=== PATIENT | female | born 1930 | race African-American/Black ===

== ENCOUNTER 2016-10-03 12:59 | Emergency (ER) | payer MEDICARE, OTHER ==
[2016-10-03 14:34] LABS: ABSOLUTE LYMPHOCYTES (AUTO) 0.5 10^3/uL (0.5-4.7); ABSOLUTE MONOCYTES (AUTO) 0.2 10^3/uL (0.1-1.4); ABSOLUTE NEUT (AUTO) 8.3 10^3/uL (1.7-8.2); BASOPHILS % (AUTO) 0.3 % (0-2); EOSINOPHILS % (AUTO) 0.1 % (0-6); HEMATOCRIT 43.2 % (36.0-47.0); HEMOGLOBIN 14.1 g/dL (12.0-15.5); HGB HCT DIFFERENCE -0.9; LYMPHOCYTES % (AUTO) 5.4 % (13-45); MEAN CORPUSCULAR HEMOGLOBIN 31.4 pg (27.0-33.4); MEAN CORPUSCULAR HGB CONC 32.6 g/dL (32.0-36.0); MEAN CORPUSCULAR VOLUME 96 fl (80-97); RED BLOOD COUNT 4.48 10^6/uL (3.72-5.28); SEGMENTED NEUTROPHILS % (AUTO) 92.2 % (42-78)
[2016-10-03 14:57] LABS: ALANINE AMINOTRANSFERASE 33 U/L (9-52); ALBUMIN 4.2 g/dL (3.5-5.0); ALKALINE PHOSPHATASE 131 U/L (38-126); ANION GAP 10 (5-19); ASPARTATE AMINO TRANSFERASE 33 U/L (14-36); BILIRUBIN,TOTAL 0.9 mg/dL (0.2-1.3); BLOOD UREA NITROGEN 24 mg/dL (7-20); CARBON DIOXIDE 29 mmol/L (22-30); CHLORIDE 103 mmol/L (98-107); CREATININE RESULT 0.86 mg/dL (0.52-1.25); GLUCOSE 100 mg/dL (75-110); LIPASE 65.4 U/L (23-300); POTASSIUM 4.6 mmol/L (3.6-5.0); SODIUM 142.1 mmol/L (137-145); TOTAL PROTEIN 8.1 g/dL (6.3-8.2)
--- NOTE | 2016-10-03 15:07 | ER Document Report ---
ED General - General Stated Complaint: NAUSEA Mode of Arrival: Medic Information source: Patient, Relative, Emergency Med Personnel Notes: 86 yr old female presents with complaints of nausea vomtiing and diarrhea. Son notes patient looks well, and that everyone at care facility has similar complaints., pt has been able to eat today. denies any abd pain at all. TRAVEL OUTSIDE OF THE [place] IN LAST 30 DAYS: No - HPI Onset: This morning Onset/Duration: Sudden Quality of pain: No pain Severity: Mild Pain Level: Denies Associated symptoms: Diarrhea, Nausea, Vomiting Exacerbated by: Denies Relieved by: Denies Similar symptoms previously: No Recently seen / treated by doctor: No - Related Data Allergies/Adverse Reactions: codeine [Codeine] Allergy (Verified 12/13/15 09:46) Penicillins Allergy (Verified 12/13/15 09:46) Past Medical History - Social History Smoking Status: Never Smoker Cigarette use (# per day): No Chew tobacco use (# tins/day): No Smoking Education Provided: No Family History: Reviewed & Not Pertinent - Past Medical History Cardiac Medical History: Reports: Hx Hypercholesterolemia, Hx Hypertension Pulmonary Medical History: Neurological Medical History: Reports: Hx Cerebrovascular Accident - 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, Endocrine Medical History: Renal/ Medical History: Malignancy Medical History: Reports: Hx Breast Cancer GI Medical History: Musculoskeltal Medical History: Psychiatric Medical History: Reports: Hx Dementia, Hx Depression Traumatic Medical History: Infectious Medical History: Past Surgical History: Reports: Hx Appendectomy, Hx Breast Surgery - right, Hx Hysterectomy, Hx Mastectomy - R breast, Hx Orthopedic Surgery - Right hip prosthesis with revision on 12/14/2015, Hx Tonsillectomy - Immunizations Hx Diphtheria, Pertussis, Tetanus Vaccination: No Hx Pneumococcal Vaccination: 07/30/12 Review of Systems - Review of Systems Notes: REVIEW OF SYSTEMS: CONSTITUTIONAL : Denies fever, chills, or sweats. Denies recent illness. EENT: Denies eye, ear, throat, or mouth pain or symptoms. Denies nasal or sinus congestion or discharge. Denies throat, tongue, or mouth swelling or difficulty swallowing. CARDIOVASCULAR: Denies chest pain. Denies palpitations or racing or irregular heart beat. Denies ankle edema. RESPIRATORY: Denies cough, cold, or chest congestion. Denies shortness of breath, difficulty breathing, or wheezing. GASTROINTESTINAL: admits ot nausea ovmtiing diarrhea GENITOURINARY: Denies difficulty urinating, painful urination, burning, frequency, blood in urine, or discharge. FEMALE GENITOURINARY: Denies vaginal bleeding, heavy or abnormal periods, irregular periods. Denies vaginal discharge or odor. MUSCULOSKELETAL: Denies back or neck pain or stiffness. Denies joint pain or swelling. SKIN: Denies rash, lesions or sores. HEMATOLOGIC : Denies easy bruising or bleeding. LYMPHATIC: Denies swollen, enlarged glands. NEUROLOGICAL: Denies confusion or altered mental status. Denies passing out or loss of consciousness. Denies dizziness or lightheadedness. Denies headache. Denies weakness or paralysis or loss of use of either side. Denies problems with gait or speech. Denies sensory loss, numbness, or tingling. Denies seizures. PSYCHIATRIC: Denies anxiety or stress. Denies depression, suicidal ideation, or homicidal ideation. ALL OTHER SYSTEMS REVIEWED AND NEGATIVE. Dictation was performed using [employer] voice recognition software PHYSICAL EXAMINATION: GENERAL: Well-appearing, well-nourished and in no acute distress. HEAD: Atraumatic, normocephalic. EYES: Pupils equal round and reactive to light, extraocular movements intact, conjunctiva are normal. ENT: Nares patent, oropharynx clear without exudates. Moist mucous membranes. NECK: Normal range of motion, supple without lymphadenopathy LUNGS: Breath sounds clear to auscultation bilaterally and equal. No wheezes rales or rhonchi. HEART: Regular rate and rhythm without murmurs ABDOMEN: Soft, nontender, nondistended abdomen. No guarding, no rebound. No masses appreciated. Female : deferred Musculoskeletal: Normal range of motion, no pitting or edema. No cyanosis. NEUROLOGICAL: Cranial nerves grossly intact. Normal speech, normal gait. Normal sensory, motor exams PSYCH: Normal mood, normal affect. SKIN: Warm, Dry, normal turgor, no rashes or lesions noted. Course - Re-evaluation Re-evalutation: 10/03/16 15:31 Patient looks extremely well, family denies any other concerns, basic lab work noted no signs of dehydration, acute abdominal series was normal. I will discharge her home with nausea control. Patient has not vomited or had diarrhea while in the emergency department After performing a Medical Screening Examination, I estimate there is LOW risk for ACUTE APPENDICITIS, BOWEL OBSTRUCTION, ACUTE CHOLECYSTITIS, PERFORATED DIVERTICULITIS, INCARCERATED HERNIA, PANCREATITIS, PELVIC INFLAMMATORY DISEASE, PERFORATED ULCER, ECTOPIC , or TUBO-OVARIAN ABSCESS, thus I consider the discharge disposition reasonable. Also, there is no evidence or peritonitis , sepsis, or toxicity. The patient and I have discussed the diagnosis and risks , and we agree with discharging home with close follow-up with the understanding that symptoms and presentations can change. We also discussed returning to the Emergency Department immediately if new or worsening symptoms occur. We have discussed the symptoms which are most concerning (e.g., bloody stool, fever, changing or worsening pain, vomiting) that necessitate immediate return. - Laboratory Result Diagrams: 10/03/16 14:25 10/03/16 14:25 Laboratory results interpreted by me: 10/03/16 10/03/16 14:25 14:25 Plt Count 122 L Seg Neutrophils % 92.2 H Lymphocytes % 5.4 L Monocytes % 2.0 L Absolute Neutrophils 8.3 H BUN 24 H Alkaline Phosphatase 131 H - Diagnostic Test Radiology reviewed: Image reviewed, Reports reviewed - no acute abnormality Discharge - Discharge Clinical Impression: Nausea vomiting and diarrhea Condition: Stable Disposition: HOME, SELF-CARE Instructions: Vomiting ([facility]), Diarrhea, Nonspecific ([facility]) Prescriptions: Ondansetron [Zofran Odt 4 mg Tablet] 1 - 2 tab PO Q4H PRN #15 tab.rapdis PRN Reason: For Nausea/Vomiting Referrals: PEPITO LYMAN MD [Primary Care Provider] - Follow up tomorrow
[2016-10-03 16:51] VITALS: BP 123/65
== END 2016-10-03 16:51 | disposition home or self-care (01) ==
LOC: ER 12:59
DX: R11.2 Nausea with vomiting, unspecified (principal); R19.7 Diarrhea, unspecified; I10 Essential (primary) hypertension; Z88.5 Allergy status to narcotic agent; Z88.0 Allergy status to penicillin; Z86.73 Personal history of transient ischemic attack (TIA), and cerebral infarction without residual deficits; Z90.49 Acquired absence of other specified parts of digestive tract; Z90.710 Acquired absence of both cervix and uterus
CPT/HCPCS: 36415; 74022; 80053; 83690; 85025; 99284

== ENCOUNTER → 2016-10-20 | Outpatient (CLI) | payer MEDICARE, OTHER | LOC: WI 08:05 | PROVIDERS: ATTEND Internal Medicine Medical Oncology | DX: C50.919 Malignant neoplasm of unspecified site of unspecified female breast (principal) | CPT/HCPCS: 78306; A9503; Q9969 ==

== ENCOUNTER 2017-06-30 08:11 | Emergency (ER) | payer MEDICARE, OTHER ==
--- NOTE | 2017-06-30 08:33 | ER Document Report ---
ED General - General Chief Complaint: Fall Stated Complaint: WEAKNESS Time Seen by Provider: 06/30/17 08:18 Mode of Arrival: Ambulatory Information source: Patient Notes: 86-year-old female history of dementia was found at care facility on the floor as an unwitnessed fall. Patient herself has no complaints is been able to ambulate with no difficulty. Initial O2 sat was read as 88% but was inaccurate and is actually 97% on room air TRAVEL OUTSIDE OF THE [place] IN LAST 30 DAYS: No - HPI Onset: Just prior to arrival Onset/Duration: Sudden Quality of pain: No pain Severity: None Pain Level: Denies Associated symptoms: None Exacerbated by: Denies Relieved by: Denies Similar symptoms previously: No Recently seen / treated by doctor: No - Related Data Allergies/Adverse Reactions: codeine [Codeine] Allergy (Verified 06/30/17 08:57) Penicillins Allergy (Verified 06/30/17 08:57) Past Medical History - Social History Smoking Status: Never Smoker Cigarette use (# per day): No Chew tobacco use (# tins/day): No Smoking Education Provided: No Family History: Reviewed & Not Pertinent - Past Medical History Cardiac Medical History: Reports: Hx Hypercholesterolemia, Hx Hypertension Pulmonary Medical History: Neurological Medical History: Reports: Hx Cerebrovascular Accident - 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, Endocrine Medical History: Renal/ Medical History: Malignancy Medical History: Reports: Hx Breast Cancer GI Medical History: Denies: Hx Pancreatitis Musculoskeltal Medical History: Psychiatric Medical History: Reports: Hx Dementia, Hx Depression Traumatic Medical History: Infectious Medical History: Past Surgical History: Reports: Hx Appendectomy, Hx Breast Surgery - right, Hx Hysterectomy, Hx Mastectomy - R breast, Hx Orthopedic Surgery - Right hip prosthesis with revision on 12/14/2015, Hx Tonsillectomy - Immunizations Hx Diphtheria, Pertussis, Tetanus Vaccination: No Hx Pneumococcal Vaccination: 07/30/12 Review of Systems - Review of Systems Notes: REVIEW OF SYSTEMS: CONSTITUTIONAL : Denies fever, chills, or sweats. Denies recent illness. EENT: Denies eye, ear, throat, or mouth pain or symptoms. Denies nasal or sinus congestion or discharge. Denies throat, tongue, or mouth swelling or difficulty swallowing. CARDIOVASCULAR: Denies chest pain. Denies palpitations or racing or irregular heart beat. Denies ankle edema. RESPIRATORY: Denies cough, cold, or chest congestion. Denies shortness of breath, difficulty breathing, or wheezing. GASTROINTESTINAL: Denies abdominal pain or distention. Denies nausea, vomiting , or diarrhea. Denies blood in vomitus, stools, or per rectum. Denies black, tarry stools. Denies constipation. GENITOURINARY: Denies difficulty urinating, painful urination, burning, frequency, blood in urine, or discharge. FEMALE GENITOURINARY: Denies vaginal bleeding, heavy or abnormal periods, irregular periods. Denies vaginal discharge or odor. MUSCULOSKELETAL: Denies back or neck pain or stiffness. Denies joint pain or swelling. SKIN: Denies rash, lesions or sores. HEMATOLOGIC : Denies easy bruising or bleeding. LYMPHATIC: Denies swollen, enlarged glands. NEUROLOGICAL: Denies confusion or altered mental status. Denies passing out or loss of consciousness. Denies dizziness or lightheadedness. Denies headache. Denies weakness or paralysis or loss of use of either side. Denies problems with gait or speech. Denies sensory loss, numbness, or tingling. Denies seizures. PSYCHIATRIC: Denies anxiety or stress. Denies depression, suicidal ideation, or homicidal ideation. ALL OTHER SYSTEMS REVIEWED AND NEGATIVE. PHYSICAL EXAMINATION: GENERAL: Well-appearing, well-nourished and in no acute distress. HEAD: Atraumatic, normocephalic. EYES: Pupils equal round and reactive to light, extraocular movements intact, conjunctiva are normal. ENT: Nares patent, oropharynx clear without exudates. Moist mucous membranes. NECK: Normal range of motion, supple without lymphadenopathy LUNGS: Breath sounds clear to auscultation bilaterally and equal. No wheezes rales or rhonchi. HEART: Regular rate and rhythm without murmurs ABDOMEN: Soft, nontender, nondistended abdomen. No guarding, no rebound. No masses appreciated. Female : deferred Musculoskeletal: Normal range of motion, no pitting or edema. No cyanosis. NEUROLOGICAL: Cranial nerves grossly intact. Normal speech, normal gait. Normal sensory, motor exams PSYCH: Normal mood, normal affect. SKIN: Warm, Dry, normal turgor, no rashes or lesions noted. Dictation was performed using [employer] voice recognition software Physical Exam - Vital signs Vitals: Temp Pulse BP Pulse Ox 98.2 F 81 174/71 H 88 L 06/30/17 08:22 06/30/17 08:22 06/30/17 08:22 06/30/17 08:22 Course - Re-evaluation Re-evalutation: 06/30/17 08:52 Patient is actually quite alert and oriented, she knows where she is she knows the date. Her medical history has been reviewed and her physical examination was very benign I do not expect and life-threatening issues. I will have nurse ambulate the patient prior to discharge 06/30/17 09:19 Daughter presents stating that she wished the care facility had called her prior to coming to the emergency department, she states she would not have brought her in and that she does not require any workup. I agree with the daughter. I will discharge at this time After performing a Medical Screening Examination, I estimate there is LOW risk for INTRACRANIAL HEMORRHAGE, UNSTABLE SPINE FRACTURE, CENTRAL CORD SYNDROME, CAUDA EQUINA, THORACIC AORTIC DISSECTION, PNEUMOTHORAX, PERFORATED BOWEL, RUPTURED ABDOMINAL AORTIC ANEURYSM, ACUTE TENDON RUPTURE, COMPARTMENT SYNDROME, or OPEN FRACTURE, thus I consider the discharge disposition reasonable. Also, there is no evidence or peritonitis, sepsis, or toxicity. I have reevaluated this patient multiple times and no significant life threatening changes are noted. The patients daughter and I have discussed the diagnosis and risks, and we agree with discharging home to follow-up with their primary doctor with the understanding that symptoms and presentations can change. We also discussed returning to the Emergency Department immediately if new or worsening symptoms occur. We have discussed the symptoms which are most concerning (e.g., bloody stool, fever, changing or worsening pain, vomiting) that necessitate immediate return. - Vital Signs Vital signs: Temp Pulse Resp BP Pulse Ox 98.2 F 81 174/71 H 88 L 06/30/17 08:22 06/30/17 08:22 06/30/17 08:22 06/30/17 08:22 Discharge - Discharge Clinical Impression: Dementia Qualifiers: Dementia type: unspecified type Dementia behavioral disturbance: without behavioral disturbance Qualified Code(s): F03.90 - Unspecified dementia without behavioral disturbance Fall Qualifiers: Encounter type: initial encounter Qualified Code(s): W19.XXXA - Unspecified fall, initial encounter Condition: Stable Disposition: HOME, SELF-CARE Referrals: PEPITO LYMAN MD [Primary Care Provider] - Follow up tomorrow
[2017-06-30 10:42] VITALS: BP 157/91
== END 2017-06-30 10:30 | disposition home or self-care (01) ==
LOC: ER 08:11
DX: F03.90 Unspecified dementia, unspecified severity, without behavioral disturbance, psychotic disturbance, mood disturbance, and anxiety (principal); R53.1 Weakness; W19.XXXA Unspecified fall, initial encounter
CPT/HCPCS: 99285

== ENCOUNTER 2018-07-04 02:58 | Emergency (ER) | payer MEDICARE, OTHER ==
--- NOTE | 2018-07-04 03:19 | ER Document Report ---
ED GI/ - General Stated Complaint: ABDOMINAL PAIN Time Seen by Provider: 07/04/18 03:09 Mode of Arrival: Medic Information source: Emergency Med Personnel Notes: Patient is an 87-year-old female who presents from the detention with chief complaint of abdominal pain and no bowel movement in 1-2 days. jail reports that she had one episode of vomiting. Patient is incontinent at her baseline. Patient is pleasantly confused, knows her name but denies any symptoms. Per detention staff she has not had any fever. TRAVEL OUTSIDE OF THE [place] 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, Endocrine Medical History: Renal/ Medical History: Malignancy Medical History: Reports: Hx Breast Cancer GI Medical History: Denies: Hx Pancreatitis Musculoskeletal Medical History: Psychiatric Medical History: Reports: Hx Dementia, Hx Depression Traumatic Medical History: Infectious Medical History: Past Surgical History: Reports: Hx Appendectomy, Hx Breast Surgery - right, Hx Hysterectomy, Hx Mastectomy - R breast, Hx Orthopedic Surgery - Right hip prosthesis with revision on 12/14/2015, Hx Tonsillectomy - Immunizations Hx Diphtheria, Pertussis, Tetanus Vaccination: No Hx Pneumococcal Vaccination: 07/30/12 Review of Systems - Review of Systems Gastrointestinal: Abdominal pain -: Yes All other systems reviewed and negative Physical Exam - Vital signs Vitals: Resp 0 L 07/04/18 03:04 - Notes Notes: PHYSICAL EXAMINATION: GENERAL: No acute distress. Alert to person. HEAD: Atraumatic, normocephalic. EYES: Pupils equal round and reactive to light, extraocular movements intact, conjunctiva are normal. ENT: Nares patent, oropharynx clear without exudates. Moist mucous membranes. NECK: Normal range of motion, supple without lymphadenopathy LUNGS: Breath sounds clear to auscultation bilaterally and equal. No wheezes rales or rhonchi. HEART: Regular rate and rhythm without murmurs ABDOMEN: Soft, nontender, firm, mildly distended abdomen. No guarding, no rebound. No masses appreciated. Female : deferred Musculoskeletal: Normal range of motion, no pitting or edema. No cyanosis. NEUROLOGICAL: Cranial nerves grossly intact. Normal speech, normal gait. Normal sensory, motor exams PSYCH: Normal mood, normal affect. SKIN: Warm, Dry, normal turgor, no rashes or lesions noted. Course - Re-evaluation Re-evalutation: CBC with mid leukocytosis, WBC 12.1. Comprehensive metabolic panel is unremarkable. Urinalysis with large leukocyte esterase, 169 white blood cells, and few white blood cell clumps present. Patient has diagnosis is pyelonephritis. I did discuss this with Dr. Atkinson and considering that patient is afebrile, is not vomiting, has normal vital signs she is a good candidate for outpatient treatment at this time. Patient will be placed on Cipro due to her allergies as well as her urine cultures historically. Urine will be sent for culture. Patient will be discharged back to the nursing facility in stable condition. First dose of Cipro given in the emergency department. - Vital Signs Vital signs: Temp Pulse Resp BP Pulse Ox 99.0 F 79 16 128/68 H 100 07/04/18 05:49 07/04/18 08:55 07/04/18 08:55 07/04/18 08:55 07/04/18 08:55 - Laboratory Result Diagrams: 07/04/18 03:25 07/04/18 03:25 Laboratory results interpreted by me: 07/04/18 07/04/18 07/04/18 03:25 03:25 04:47 WBC 12.1 H RDW 14.4 H Plt Count 125 L Seg Neutrophils % 83.9 H Lymphocytes % 10.1 L Absolute Neutrophils 10.2 H BUN 23 H Glucose 120 H Urine Protein 30 H Urine Ketones TRACE H Urine Urobilinogen 4.0 H Ur Leukocyte Esterase LARGE H Urine Ascorbic Acid 40 H Discharge - Discharge Clinical Impression: Pyelonephritis Condition: Stable Disposition: HOME, SELF-CARE Additional Instructions: PYELONEPHRITIS: Your evaluation shows evidence of pyelonephritis. This is an infection in the kidney. Typical symptoms are fever, pain in the flank, pain on urination, and frequent urination. Many cases of pyelonephritis can be treated at home. Hospital care may be necessary for patients who are very ill, or elderly or . Pyelonephritis is treated with antibiotics. Be sure to take all the medication as prescribed. Drink plenty of liquids (about three quarts per day) . You may take acetaminophen for fever. You should feel significantly improved within two days. You should have a recheck of your urine in about one week to insure that the infection is gone. Return for a re-examination if your symptoms worsen in any way -- such as high fever, shaking chills, severe weakness or dizziness, severe pain, or inability to pass your urine. ANTIBIOTIC THERAPY: You have been given an antibiotic prescription. It's important that you take all the medication, unless instructed otherwise by your physician. Failure to complete the entire course can result in relapse of your condition. Common side effects of antibiotics include nausea, intestinal cramping, or diarrhea. Women may develop vaginal yeast infections, and babies can get yeast (thrush) in the mouth following the use of antibiotics. Contact your physician if you develop significant side effects from this medication. Allergy to this antibiotic can result in hives, wheezing, faintness, or itching. If symptoms of allergy occur, stop the medication and call the doctor. CIPROFLOXACIN: You have been given an antibacterial agent, ciprofloxacin (Cipro). This medicine is not related to the penicillins, sulfas, cephalosporins, or tetracyclines. It is often given to patients who are allergic to these drugs. It has been chosen for you either because other drugs are not appropriate, or because of the nature of your problem. Cipro should not be taken with antacids, as these can decrease its effectiveness. It can be taken without regard to meals. CIPRO SHOULD NOT BE TAKEN BY CHILDREN, NURSING WOMEN, OR WOMEN. Although Cipro is usually well-tolerated, common side effects can include nausea and diarrhea. Contact your doctor if you experience any unusual symptoms while on this medication, such as joint pain or swelling, shortness of breath, wheezing, faintness, or hives. USE OF ACETAMINOPHEN (Tylenol): Acetaminophen may be taken for pain relief or fever control. It's much safer than aspirin, offering a wider range of "safe" dosages. It is safe during . Some brand names are Tylenol, Panadol, Datril, Anacin 3, Tempra, and Liquiprin. Acetaminophen can be repeated every four hours. The following are maximum recommended dosages: >89 pounds or adults 650 mg to 900 mg Acetaminophen can be repeated every four hours. Maximum dose not to exceed 4000 mg a day. FOLLOW-UP CARE: If you have been referred to a physician for follow-up care, call the physician s office for an appointment as you were instructed or within the next two days. If you experience worsening or a significant change in your symptoms, notify the physician immediately or return to the Emergency Department at any time for re-evaluation. Please make sure she takes the antibiotics exactly as prescribed. She was given the first dose here, she can take her next dose as soon as the prescriptions filled this morning. The urine was sent for a culture, we will call if there are any abnormalities. Be sure she is drinking plenty of fluids. Return to the emergency department if she develops high fever, shaking, chills , severe weakness or dizziness or worsening symptoms. She should follow-up with her primary care doctor in the next 2-3 days for a follow-up. Prescriptions: Ciprofloxacin HCl [Cipro 500 mg Tablet] 500 mg PO BID #20 tablet Referrals: RUDI GARCÍA MD [Primary Care Provider] - Follow up as needed
[2018-07-04 03:34] LABS: ABSOLUTE BASOPHILS # (AUTO) 0.1 10^3/uL (0.0-0.2); ABSOLUTE EOSINOPHILS # (AUTO) 0.1 10^3/uL (0.0-0.6); ABSOLUTE LYMPHOCYTES (AUTO) 1.2 10^3/uL (0.5-4.7); ABSOLUTE MONOCYTES (AUTO) 0.6 10^3/uL (0.1-1.4); ABSOLUTE NEUT (AUTO) 10.2 10^3/uL (1.7-8.2); BASOPHILS % (AUTO) 0.6 % (0-2); EOSINOPHILS % (AUTO) 0.7 % (0-6); HEMATOCRIT 39.9 % (36.0-47.0); LYMPHOCYTES % (AUTO) 10.1 % (13-45); MEAN CORPUSCULAR HEMOGLOBIN 31.1 pg (27.0-33.4); MEAN CORPUSCULAR HGB CONC 32.5 g/dL (32.0-36.0); MEAN CORPUSCULAR VOLUME 96 fl (80-97); MONOCYTES % (AUTO) 4.7 % (3-13); PLATELET COUNT 125 10^3/uL (150-450); RED BLOOD COUNT 4.17 10^6/uL (3.72-5.28); RED CELL DISTRIBUTION WIDTH 14.4 % (11.5-14.0); SEGMENTED NEUTROPHILS % (AUTO) 83.9 % (42-78); TOTAL CELLS COUNTED % (AUTO) 100 %; WHITE BLOOD COUNT 12.1 10^3/uL (4.0-10.5)
[2018-07-04 03:46] LABS: ALANINE AMINOTRANSFERASE 12 U/L (9-52); ALKALINE PHOSPHATASE 105 U/L (38-126); ANION GAP 9 (5-19); ASPARTATE AMINO TRANSFERASE 19 U/L (14-36); BILIRUBIN,DIRECT 0.2 mg/dL (0.0-0.4); BILIRUBIN,TOTAL 0.5 mg/dL (0.2-1.3); BLOOD UREA NITROGEN 23 mg/dL (7-20); CALCIUM 9.5 mg/dL (8.4-10.2); CARBON DIOXIDE 28 mmol/L (22-30); CHLORIDE 105 mmol/L (98-107); GLUCOSE 120 mg/dL (75-110); POTASSIUM 4.2 mmol/L (3.6-5.0); SODIUM 142.2 mmol/L (137-145); TOTAL PROTEIN 6.9 g/dL (6.3-8.2)
--- NOTE | 2018-07-04 04:06 | RADIOLOGY REPORT (SQ) ---
Acute abdominal series on 07/04/2018 at 4:09 AM CLINICAL INDICATION: Constipation COMPARISON: None currently available FINDINGS: CHEST: Cardiomegaly is noted. There is minimal basilar atelectasis. Lungs are otherwise clear. Pulmonary vascularity is within normal limits. ABDOMEN: The patient is status post a left total hip arthroplasty. Degenerative changes and dextroscoliosis is noted in the spine. There is gaseous distention of the stomach. Bowel gas pattern is otherwise nonspecific. No increased stool to suggest constipation is noted. Calcifications in the pelvis are consistent with phleboliths. IMPRESSION: 1. No acute cardiopulmonary disease. 2. Nonspecific abdomen.
[2018-07-04 05:03] LABS: APPEARANCE,URINE CLOUDY; BILIRUBIN,URINE NEGATIVE (NEGATIVE); COLOR,URINE YELLOW; GLUCOSE, URINE NEGATIVE (NEGATIVE); KETONES,URINE TRACE mg/dL (NEGATIVE); LEUKOCYTE ESTERASE,URINE LARGE (NEGATIVE); NITRITE,URINE NEGATIVE (NEGATIVE); PROTEIN,URINE 30 mg/dL (NEGATIVE)
[2018-07-04] MEDS ORDERED: NORMAL SALINE 1000 ML 500 ML IV ONE (05:53)
[2018-07-04] MEDS ORDERED: CIPROFLOXACIN HCL 500 MG TABLET PO ONE (05:58)
[2018-07-04 08:57] VITALS: BP 128/68
== END 2018-07-04 09:14 | disposition home or self-care (01) ==
LOC: ER 02:58
DX: N12 Tubulo-interstitial nephritis, not specified as acute or chronic (principal); R10.9 Unspecified abdominal pain; R11.10 Vomiting, unspecified; F32.9 Major depressive disorder, single episode, unspecified; Z88.0 Allergy status to penicillin; Z88.5 Allergy status to narcotic agent; Z86.73 Personal history of transient ischemic attack (TIA), and cerebral infarction without residual deficits; Z85.3 Personal history of malignant neoplasm of breast; F03.90 Unspecified dementia, unspecified severity, without behavioral disturbance, psychotic disturbance, mood disturbance, and anxiety; Z90.710 Acquired absence of both cervix and uterus; Z90.11 Acquired absence of right breast and nipple
CPT/HCPCS: 99284; 36415; 87086; 85025; 87088; 80053; 81001; 87186; 74022; A9270; J7030

== ENCOUNTER 2018-07-07 17:07 | Emergency (ER) | payer MEDICARE ==
[2018-07-07 17:59] LABS: ABSOLUTE BASOPHILS # (AUTO) 0.1 10^3/uL (0.0-0.2); ABSOLUTE EOSINOPHILS # (AUTO) 0.1 10^3/uL (0.0-0.6); ABSOLUTE LYMPHOCYTES (AUTO) 1.6 10^3/uL (0.5-4.7); ABSOLUTE MONOCYTES (AUTO) 0.4 10^3/uL (0.1-1.4); ABSOLUTE NEUT (AUTO) 4.7 10^3/uL (1.7-8.2); BASOPHILS % (AUTO) 0.8 % (0-2); EOSINOPHILS % (AUTO) 1.8 % (0-6); HEMOGLOBIN 11.5 g/dL (12.0-15.5); LYMPHOCYTES % (AUTO) 23.2 % (13-45); MEAN CORPUSCULAR HEMOGLOBIN 31.7 pg (27.0-33.4); MEAN CORPUSCULAR HGB CONC 32.8 g/dL (32.0-36.0); MEAN CORPUSCULAR VOLUME 97 fl (80-97); MONOCYTES % (AUTO) 6.2 % (3-13); PLATELET COUNT 117 10^3/uL (150-450); RED BLOOD COUNT 3.62 10^6/uL (3.72-5.28); RED CELL DISTRIBUTION WIDTH 14.8 % (11.5-14.0); TOTAL CELLS COUNTED % (AUTO) 100 %
--- NOTE | 2018-07-07 18:02 | ER Document Report ---
ED General - General Mode of Arrival: Ambulatory Information source: Patient TRAVEL OUTSIDE OF THE [place] IN LAST 30 DAYS: No <KRISTAL THOMPSON - Last Filed: 07/07/18 23:50> <DOUG CHANDRA - Last Filed: 07/08/18 00:07> - General Chief Complaint: Low Blood Sugar Stated Complaint: BLOOD SUGAR PROBLEMS Time Seen by Provider: 07/07/18 17:43 Notes: Patient is an 87 year old female with dementia who was sent to the emergency department from [facility] due to decreased blood sugar and altered mental status. Patient states she feels fine at bedside. No further history was obtained due to patient's dementia. EMS administered 30mg of D50 en route. (KRISTAL THOMPSON) - Related Data Allergies/Adverse Reactions: codeine [Codeine] Allergy (Verified 06/30/17 08:57) Penicillins Allergy (Verified 06/30/17 08:57) Past Medical History - General Information source: Patient, [facility] Records - Social History Smoking Status: Never Smoker Cigarette use (# per day): No Chew tobacco use (# tins/day): No Smoking Education Provided: No Frequency of alcohol use: None Family History: Reviewed & Not Pertinent - Past Medical History Cardiac Medical History: Reports: Hx Hypercholesterolemia, Hx Hypertension Pulmonary Medical History: Neurological Medical History: Reports: Hx Cerebrovascular Accident - 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, Endocrine Medical History: Renal/ Medical History: Malignancy Medical History: Reports: Hx Breast Cancer GI Medical History: Musculoskeletal Medical History: Psychiatric Medical History: Reports: Hx Dementia, Hx Depression Traumatic Medical History: Infectious Medical History: Past Surgical History: Reports: Hx Appendectomy, Hx Breast Surgery - right, Hx Hysterectomy, Hx Mastectomy - R breast, Hx Orthopedic Surgery - Right hip prosthesis with revision on 12/14/2015, Hx Tonsillectomy - Immunizations Hx Diphtheria, Pertussis, Tetanus Vaccination: No Hx Pneumococcal Vaccination: 07/30/12 <KRISTAL THOMPSON - Last Filed: 07/07/18 23:50> Review of Systems - Review of Systems -: Yes ROS unobtainable due to patient's medical condition <KRISTAL THOMPSON - Last Filed: 07/07/18 23:50> Physical Exam <KRISTAL THOMPSON - Last Filed: 07/07/18 23:50> <DOUG CHANDRA - Last Filed: 07/08/18 00:07> - Notes Notes: GENERAL: Alert, Demented at baseline, interacts well. No acute distress. HEAD: Normocephalic, atraumatic. EYES: Pupils equal, round, and reactive to light. Extraocular movements intact. ENT: Oral mucosa moist, tongue midline. NECK: Full range of motion. Supple. Trachea midline. LUNGS: Clear to auscultation bilaterally, no wheezes, rales, or rhonchi. No respiratory distress. HEART: Regular rate and rhythm. No murmurs, gallops, or rubs. ABDOMEN: Soft, non-tender. Non-distended. Bowel sounds present in all 4 quadrants. EXTREMITIES: Moves all 4 extremities spontaneously. No edema, radial and dorsalis pedis pulses 2/4 bilaterally. No cyanosis. NEUROLOGICAL: Alert. Oriented to situation. Disoriented to place or year. When asked her name she gives incorrect last name. When asked where did the last name of Gina come from, she states "my dear sweet ". PSYCH: Normal affect, normal mood. SKIN: Warm, dry, normal turgor. No rashes or lesions noted. BACK: Rivastigmin patch on her left shoulder. (KRISTAL THOMPSON) Course - Laboratory Result Diagrams: 07/07/18 17:45 07/07/18 17:45 <KRISTAL THOMPSON - Last Filed: 07/07/18 23:50> - Laboratory Result Diagrams: 07/07/18 17:45 07/07/18 17:45 <DOUG CHANDRA - Last Filed: 07/08/18 00:07> - Re-evaluation Re-evalutation: 07/07/18 22:38 CBC shows anemia which is somewhat worsened compared to a few days ago, platelets slightly low at 117, hypoglycemia slowly resolved over the next 3 hours and remained stable after she was fed, initial troponin was 0.013, this was repeated several hours later and now it is undetectable, urinalysis does not show any signs of infection. EKG is nonischemic. Son at bedside states that as soon as her sugar normalized she returned to normal. She does not have a history of diabetes however she does wear an Exelon patch, there are some case reports that state that the Exelon patch may cause hypoglycemia. I recommended that the patient make sure she is snacking throughout the day as well as having regular meals, that she follow-up with her primary care physician who may want to order an A1c and that the jail perform before meals and at bedtime blood sugar checks. Son and patient are agreeable to this plan. They are aware that I do not have an exact reason why her blood sugar dropped today however I see no signs of infection, renal failure or heart attack that would have caused this. She did have one episode of atrial fibrillation that was week controlled while she was here. I see no record of this in her histories. Patient should follow- up with Dr. Lyman about this is an outpatient. There is no need to admit for one asymptomatic episode of atrial fibrillation that was rate controlled. This would not cause hypoglycemia. (DOUG CHANDRA) - Laboratory Laboratory results interpreted by me: 07/07/18 07/07/18 07/07/18 17:45 17:45 18:02 RBC 3.62 L Hgb 11.5 L Hct 35.0 L RDW 14.8 H Plt Count 117 L Potassium 5.1 H BUN 23 H Est GFR (Non-Af Amer) 53 L POC Glucose Urine Ascorbic Acid 40 H 07/07/18 18:20 RBC Hgb Hct RDW Plt Count Potassium BUN Est GFR (Non-Af Amer) POC Glucose 57 L Urine Ascorbic Acid - EKG Interpretation by Me Additional EKG results interpreted by me: 07/07/18 22:39 Initial EKG shows sinus bradycardia at a rate of 157, left anterior hemiblock, poor R wave progression, T wave inversions noted in lead III and aVF, poor R wave progression is new since prior EKG on 03/13/2016 as is the left anterior hemiblock per my interpretation. Repeat EKG shows atrial fibrillation at a rate of 58, left anterior hemiblock, poor R wave progression, persistent T wave inversion in lead III and aVF, no significant change from first EKG aside from atrial fibrillation today per my interpretation. (DOUG CHANDRA) Discharge <KRISTAL THOMPSON - Last Filed: 07/07/18 23:50> <DOUG CHANDRA - Last Filed: 07/08/18 00:07> - Discharge Clinical Impression: Hypoglycemia, Intermittent atrial fibrillation Condition: Stable Disposition: HOME, SELF-CARE Additional Instructions: Today her blood sugar was low but this normalized when we fed her. I did not find any signs of infection or a heart attack that would have caused this. It is important that they check her blood sugar regularly at the jail, they should consider checking it before meals and before bedtime and then feeding her if it is low. In addition to eating 3 meals a day please make sure you are eating snacks with some fat and some protein in them in between meals. You did have one episode of atrial fibrillation while you are in the emergency department, this is an irregular heartbeat. I do not see any record that you have had this before. You will need to follow-up with your primary care physician regarding this 1 episode of atrial fibrillation. Nothing needs to be done for it this evening as it was rate controlled. Referrals: PEPITO LYMAN MD [Primary Care Provider] - Follow up in 3-5 days Scribe Attestation: 07/08/18 00:07 I personally performed the services described in the documentation, reviewed and edited the documentation which was dictated to the scribe in my presence, and it accurately records my words and actions. (DOUG CHANDRA) Scribe Documentation - Scribe Written by Sedrick:: Sedrick Pulido, 07/07/2018 19:00 acting as scribe for :: Peyman <KRISTAL THOMPSON - Last Filed: 07/07/18 23:50>
[2018-07-07 18:18] LABS: APPEARANCE,URINE CLEAR; BILIRUBIN,URINE NEGATIVE (NEGATIVE); COLOR,URINE YELLOW; GLUCOSE, URINE NEGATIVE (NEGATIVE); KETONES,URINE NEGATIVE (NEGATIVE); LEUKOCYTE ESTERASE,URINE NEGATIVE (NEGATIVE); NITRITE,URINE NEGATIVE (NEGATIVE); PROTEIN,URINE NEGATIVE (NEGATIVE); URINE SPECIFIC GRAVITY 1.018; UROBILINOGEN,URINE NEGATIVE mg/dL (<2.0)
[2018-07-07 18:19] LABS: ALANINE AMINOTRANSFERASE 16 U/L (9-52); ALBUMIN 4.3 g/dL (3.5-5.0); ALKALINE PHOSPHATASE 91 U/L (38-126); ANION GAP 13 (5-19); ASPARTATE AMINO TRANSFERASE 29 U/L (14-36); BILIRUBIN,DIRECT 0.3 mg/dL (0.0-0.4); BILIRUBIN,TOTAL 0.8 mg/dL (0.2-1.3); BLOOD UREA NITROGEN 23 mg/dL (7-20); CALCIUM 9.4 mg/dL (8.4-10.2); CARBON DIOXIDE 27 mmol/L (22-30); CHLORIDE 104 mmol/L (98-107); CREATINE KINASE 76 U/L (30-135); GLUCOSE 94 mg/dL (75-110); POTASSIUM 5.1 mmol/L (3.6-5.0); SODIUM 144.1 mmol/L (137-145); TOTAL PROTEIN 7.5 g/dL (6.3-8.2)
[2018-07-07 18:31] LABS: CREATINE KINASE MB 1.32 ng/mL (<4.55); TROPONIN I 0.013 ng/mL
--- NOTE | 2018-07-07 22:06 | EKG REPORT ---
SEVERITY:- ABNORMAL ECG - ATRIAL FIBRILLATION LEFT ANTERIOR FASCICULAR BLOCK PROBABLE ANTEROSEPTAL INFARCT, AGE INDETERM NONSPECIFIC T ABNORMALITIES, INFERIOR LEADS : Confirmed by: Robyn Quinn 07-Jul-2018 22:05:42
--- NOTE | 2018-07-07 22:06 | EKG REPORT ---
SEVERITY:- ABNORMAL ECG - SINUS RHYTHM LEFT ANTERIOR FASCICULAR BLOCK ABNRM R PROG, CONSIDER ASMI OR LEAD PLACEMENT NONSPECIFIC T ABNORMALITIES, INFERIOR LEADS : Confirmed by: Robyn Quinn 07-Jul-2018 22:06:04
[2018-07-08 01:17] VITALS: BP 109/61
== END 2018-07-07 23:20 | disposition home or self-care (01) ==
LOC: ER 17:07
DX: E16.2 Hypoglycemia, unspecified (principal); I48.91 Unspecified atrial fibrillation; R00.1 Bradycardia, unspecified; F03.90 Unspecified dementia, unspecified severity, without behavioral disturbance, psychotic disturbance, mood disturbance, and anxiety; I10 Essential (primary) hypertension; D64.9 Anemia, unspecified; Z88.5 Allergy status to narcotic agent; Z88.0 Allergy status to penicillin; Z86.73 Personal history of transient ischemic attack (TIA), and cerebral infarction without residual deficits; Z85.3 Personal history of malignant neoplasm of breast; Z79.899 Other long term (current) drug therapy
CPT/HCPCS: 36415; 80053; 81001; 82550; 82553; 82962; 84484; 85025; 93005; 93010; 99285

== ENCOUNTER 2019-03-13 11:36 | Inpatient (IN) | payer MEDICARE, OTHER ==
[2019-03-13 12:17] LABS: HEMATOCRIT 38.9 % (36.0-47.0); HEMOGLOBIN 12.4 g/dL (12.0-15.5); MEAN CORPUSCULAR HEMOGLOBIN 29.2 pg (27.0-33.4); MEAN CORPUSCULAR HGB CONC 31.8 g/dL (32.0-36.0); MEAN CORPUSCULAR VOLUME 92 fl (80-97); PLATELET COUNT 104 10^3/uL (150-450); RED BLOOD COUNT 4.25 10^6/uL (3.72-5.28); RED CELL DISTRIBUTION WIDTH 15.7 % (11.5-14.0); WHITE BLOOD COUNT 17.3 10^3/uL (4.0-10.5)
[2019-03-13 12:17] LABS: VENOUS BLOOD BASE EXCESS 0.2 mmol/L; VENOUS BLOOD HCO3 24.7 mmol/L (20-32); VENOUS BLOOD PCO2 39.4 mmHg (35-63); VENOUS BLOOD PH 7.42 (7.30-7.42)
--- NOTE | 2019-03-13 12:20 | ER Document Report ---
ED General - General Stated Complaint: ALTERED MENTAL STATUS Time Seen by Provider: 03/13/19 11:58 Primary Care Provider: PEPITO LYMAN MD [Primary Care Provider] - Follow up as needed TRAVEL OUTSIDE OF THE [place] IN LAST 30 DAYS: No - HPI Notes: Patient is a 88-year-old female that presents to the emergency department for chief complaint of mental status change. [facility] lives at [facility] facility. She reportedly has Alzheimer's dementia. Patient was sitting at the breakfast table this morning around 9 AM per her son when she had an episode of unresponsiveness. The son states that she seemed to slouch over a breakfast and had slurred speech. Patient reportedly has a history of TIAs in the past. longterm states initially she was not speaking and EMS said that she has had improving mentation since they arrived on scene. Patient is DNR. She is not currently complaining of any pain and states she feels fine. Patient is a poor historian secondary to dementia. Past Medical History: Alzheimer's dementia, insomnia Past Surgical History: Reviewed in chart Social History: Lives at jail facility. Family History: Reviewed and noncontributory for presenting illness Allergies: Reviewed, see documented allergy list. REVIEW OF SYSTEMS: CONSTITUTIONAL : No fever No chills No diaphoresis No recent illness EENT: No vision changes No congestion No sore throat CARDIOVASCULAR: No chest pain No palpitations RESPIRATORY: No shortness of breath No cough No difficulty breathing GASTROINTESTINAL: No abdominal pain No nausea No vomiting No diarrhea GENITOURINARY: No dysuria No hematuria No difficulty urinating MUSCULOSKELETAL: No back pain No leg pain No arm pain SKIN: No rashes No lesions LYMPHATIC: No swollen, enlarged glands. NEUROLOGICAL: No lightheadedness No headache No weakness No paresthesias PSYCHIATRIC: No anxiety No depression PHYSICAL EXAMINATION: Vital signs reviewed, nursing noted reviewed. GENERAL: Well-appearing, well-nourished and in no acute distress. HEAD: Atraumatic, normocephalic. EYES: Eyes appear normal, extraocular movements intact, sclera anicteric, conjunctiva are normal. ENT: nares patent, oropharynx clear without exudates. Moist mucous membranes. NECK: Normal range of motion, supple without lymphadenopathy LUNGS: Breath sounds clear to auscultation bilaterally and equal. No wheezes rales or rhonchi. HEART: Regular rate and rhythm without murmurs ABDOMEN: Soft, nontender, normoactive bowel sounds. No rebound, guarding, or rigidity. No masses appreciated. EXTREMITIES: Nontender, good range of motion, no pitting or edema. NEUROLOGICAL: Oriented to person only. somnolent. Patient not following commands well but is able to move all extremities and motor is grossly intact. She has weak admissions representative strength bilaterally. She has minimal movement of her lower extremities bilaterally. Sensory grossly intact. PSYCH: Normal mood, normal affect. 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, Endocrine Medical History: Renal/ Medical History: Malignancy Medical History: Reports: Hx Breast Cancer GI Medical History: Denies: Hx Pancreatitis Musculoskeletal Medical History: Denies Hx Systemic Lupus Erythematosus Psychiatric Medical History: Reports: Hx Dementia, Hx Depression Traumatic Medical History: Infectious Medical History: Past Surgical History: Reports: Hx Appendectomy, Hx Breast Surgery - right, Hx Hysterectomy, Hx Mastectomy - R breast, Hx Orthopedic Surgery - Right hip prosth esis with revision on 12/14/2015, Hx Tonsillectomy - Immunizations Hx Diphtheria, Pertussis, Tetanus Vaccination: No Hx Pneumococcal Vaccination: 07/30/12 Course - Re-evaluation Re-evalutation: 03/13/19 13:14 Vitals reviewed. Nursing notes reviewed. Patient is alert and oriented to her self. Her son is at bedside and states she seems more tired than usual but not too far off from her baseline mentation. it is difficult to assess her neurologic function because of her dementia she is not following commands well although she is attempting. Her CT brain shows no acute intracranial process. She has no lateralizing neurologic deficit to suggest ischemic stroke. Patient's lab work shows leukocytosis with bandemia. Chest x-ray shows no underlying pneumonia. Urinalysis has not been able to be obtained as of yet however she does have a history of UTIs on chart review. Laboratory 0703/13/19 03/13/19 11:50 11:50 11:50 WBC 17.3 H RBC 4.25 Hgb 12.4 Hct 38.9 MCV 92 MCH 29.2 MCHC 31.8 L RDW 15.7 H Plt Count 104 L Total Counted 100 Seg Neutrophils % Not Reportable Seg Neuts % (Manual) 92 H Lymphocytes % Not Reportable Lymphocytes % (Manual) 4 L Monocytes % Not Reportable Monocytes % (Manual) 4 Eosinophils % Not Reportable Eosinophils % (Manual) 0 Basophils % Not Reportable Basophils % (Manual) 0 Absolute Neutrophils Not Reportable Abs Neuts (Manual) 15.9 H Absolute Lymphocytes Not Reportable Abs Lymphs (Manual) 0.7 Absolute Monocytes Not Reportable Abs Monocytes (Manual) 0.7 Absolute Eosinophils Not Reportable Absolute Eos (Manual) 0.0 Absolute Basophils Not Reportable Abs Basophils (Manual) 0.0 Large Platelets PRESENT Platelet Comment DECREASED Polychromasia SLIGHT Poikilocytosis SLIGHT Anisocytosis SLIGHT Ovalocytes SLIGHT PT 12.9 INR 0.97 VBG pH VBG pCO2 VBG HCO3 VBG Base Excess Sodium 141.6 Potassium 4.2 Chloride 105 Carbon Dioxide 26 Anion Gap 11 BUN 33 H Creatinine 1.02 Est GFR ( Amer) > 60 Est GFR (Non-Af Amer) 51 L Glucose 122 H Lactic Acid Calcium 9.4 Total Bilirubin 0.9 Direct Bilirubin 0.3 Neonat Total Bilirubin Not Reportable Neonat Direct Bilirubin Not Reportable Neonat Indirect Bili Not Reportable AST 20 ALT 9 Alkaline Phosphatase 105 Troponin I Total Protein 7.5 Albumin 4.3 03/13/19 03/13/19 03/13/19 11:50 11:50 12:08 WBC RBC Hgb Hct MCV MCH MCHC RDW Plt Count Total Counted Seg Neutrophils % Seg Neuts % (Manual) Lymphocytes % Lymphocytes % (Manual) Monocytes % Monocytes % (Manual) Eosinophils % Eosinophils % (Manual) Basophils % Basophils % (Manual) Absolute Neutrophils Abs Neuts (Manual) Absolute Lymphocytes Abs Lymphs (Manual) Absolute Monocytes Abs Monocytes (Manual) Absolute Eosinophils Absolute Eos (Manual) Absolute Basophils Abs Basophils (Manual) Large Platelets Platelet Comment Polychromasia Poikilocytosis Anisocytosis Ovalocytes PT INR VBG pH 7.42 VBG pCO2 39.4 VBG HCO3 24.7 VBG Base Excess 0.2 Sodium Potassium Chloride Carbon Dioxide Anion Gap BUN Creatinine Est GFR ( Amer) Est GFR (Non-Af Amer) Glucose Lactic Acid 1.7 Calcium Total Bilirubin Direct Bilirubin Neonat Total Bilirubin Neonat Direct Bilirubin Neonat Indirect Bili AST ALT Alkaline Phosphatase Troponin I < 0.012 Total Protein Albumin Chest X-Ray 03/13/19 11:58 IMPRESSION: Cardiomegaly without pulmonary edema. Head CT 03/13/19 11:58 IMPRESSION: MICROVASCULAR ISCHEMIA AND GENERALIZED ATROPHY. NO ACUTE IMAGING FINDINGS IN THE BRAIN EVIDENCE OF ACUTE STROKE: NO. 03/13/19 13:34 Patient was reevaluated again and is continuing to be somnolent but wakes to verbal stimuli. Her daughter is now at bedside and states that she has had increasing fatigue since yesterday. Daughter has not noticed any other symptoms but currently states that her mother is less arousable than usual. Patient will be given Rocephin for likely underlying urinary tract infection while awaiting UA sample to be obtained. Patient is continued to be altered and has a leukocytosis concerning for infection. She will be admitted for further monitoring. Her care was discussed with Dr. Ellis who will admit for further medical management. - Laboratory Result Diagrams: 03/13/19 11:50 03/13/19 11:50 Laboratory results interpreted by me: 03/13/19 03/13/19 11:50 11:50 WBC 17.3 H MCHC 31.8 L RDW 15.7 H Plt Count 104 L Seg Neuts % (Manual) 92 H Lymphocytes % (Manual) 4 L Abs Neuts (Manual) 15.9 H BUN 33 H Est GFR (Non-Af Amer) 51 L Glucose 122 H - EKG Interpretation by Me Additional EKG results interpreted by me: 03/13/19 13:13 Interpreted by myself 1306: Normal sinus rhythm, rate 81, left axis, left anterior fascicular block, no STEMI, PAC Discharge - Discharge Clinical Impression: Altered mental status Qualifiers: Altered mental status type: somnolence Qualified Code(s): R40.0 - Somnolence Leukocytosis Qualifiers: Leukocytosis type: bandemia Qualified Code(s): D72.825 - Bandemia Condition: Stable Disposition: ADMITTED INPATIENT Admitting Provider: Caleb (Hospitalist) Unit Admitted: Medical Floor Referrals: PEPITO LYMAN MD [Primary Care Provider] - Follow up as needed
[2019-03-13 12:21] LABS: INTERNATIONAL RATION (INR) 0.97; PROTHROMBIN TIME 12.9 SEC (11.4-15.4)
[2019-03-13 12:35] LABS: ALANINE AMINOTRANSFERASE 9 U/L (9-52); ALBUMIN 4.3 g/dL (3.5-5.0); ALKALINE PHOSPHATASE 105 U/L (38-126); ANION GAP 11 (5-19); ASPARTATE AMINO TRANSFERASE 20 U/L (14-36); BILIRUBIN,DIRECT 0.3 mg/dL (0.0-0.4); BILIRUBIN,TOTAL 0.9 mg/dL (0.2-1.3); BLOOD UREA NITROGEN 33 mg/dL (7-20); CALCIUM 9.4 mg/dL (8.4-10.2); CARBON DIOXIDE 26 mmol/L (22-30); CHLORIDE 105 mmol/L (98-107); GLUCOSE 122 mg/dL (75-110); POTASSIUM 4.2 mmol/L (3.6-5.0); SODIUM 141.6 mmol/L (137-145); TOTAL PROTEIN 7.5 g/dL (6.3-8.2)
--- NOTE | 2019-03-13 12:39 | RADIOLOGY REPORT (SQ) ---
EXAM DESCRIPTION: CHEST SINGLE VIEW COMPLETED DATE/TIME: 03/13/2019 12:31 pm REASON FOR STUDY: altered mental status COMPARISON: 03/16/2016 EXAM PARAMETERS: NUMBER OF VIEWS: One view. TECHNIQUE: Single frontal radiographic view of the chest acquired. RADIATION DOSE: NA LIMITATIONS: None. FINDINGS: LUNGS AND PLEURA: No opacities, masses or pneumothorax. No pleural effusion. MEDIASTINUM AND HILAR STRUCTURES: No masses. Contour normal. HEART AND VASCULAR STRUCTURES: Cardiomegaly. No pulmonary edema. BONES: No acute findings. HARDWARE: None in the chest. OTHER: No other significant finding. IMPRESSION: Cardiomegaly without pulmonary edema. TECHNICAL DOCUMENTATION: JOB ID: [id number] [employer]- All Rights Reserved Reading location - IP/workstation name: [email or web address]
[2019-03-13 12:41] LABS: ABSOLUTE LYMPHOCYTES# (MANUAL) 0.7 10^3/uL (0.5-4.7); ABSOLUTE MONOCYTES # (MANUAL) 0.7 10^3/uL (0.1-1.4); BASOPHILS % (MANUAL) 0 % (0-2); EOSINOPHILS % (MANUAL) 0 % (0-6); LYMPHOCYTES % (MANUAL) 4 % (13-45); MONOCYTES % (MANUAL) 4 % (3-13); SEGMENTED NEUTROPHILS % (MAN) 92 % (42-78); TOTAL CELLS COUNTED 100
[2019-03-13 12:43] LABS: ANISOCYTOSIS SLIGHT; OVALOCYTES SLIGHT; PLATELET COMMENT DECREASED; PLATELET LARGE PRESENT; POIKILOCYTOSIS SLIGHT; POLYCHROMASIA SLIGHT
--- NOTE | 2019-03-13 12:44 | RADIOLOGY REPORT (SQ) ---
EXAM DESCRIPTION: CT HEAD WITHOUT COMPLETED DATE/TIME: 03/13/2019 12:35 pm REASON FOR STUDY: altered mental status COMPARISON: 08/07/2015 TECHNIQUE: Axial images acquired through the brain without intravenous contrast. Images reviewed wi th bone, brain and subdural windows. Additional sagittal and coronal reconstructions were generated. Images stored on PACS. All CT scanners at this facility use dose modulation, iterative reconstruction, and/or weight based d osing when appropriate to reduce radiation dose to as low as reasonably achievable (ALARA). [facility]: Dose Right [facility]: CareDose [facility]: Dose Right [facility]: Teradose 4D [facility]: Smart [employer] Water RADIATION DOSE: CT Rad equipment meets quality standard of care and radiation dose reduction techniq ues were employed. CTDIvol: 53.2 mGy. DLP: 964 mGy-cm. mGy. LIMITATIONS: None. FINDINGS: VENTRICLES: Prominent ventricles secondary to involutional atrophy. CEREBRUM: Mild cortical atrophy. No masses. No hemorrhage. No midline shift. No evidence for acut e infarction. Areas of low density in the white matter most likely chronic small vessel ischemic richardson ges. CEREBELLUM: No masses. No hemorrhage. No alteration of density. No evidence for acute infarction. EXTRAAXIAL SPACES: No fluid collections. No masses. ORBITS AND GLOBE: No intra- or extraconal masses. Normal contour of globe without masses. CALVARIUM: No fracture. PARANASAL SINUSES: No fluid or mucosal thickening. SOFT TISSUES: No mass or hematoma. OTHER: No other significant finding. IMPRESSION: MICROVASCULAR ISCHEMIA AND GENERALIZED ATROPHY. NO ACUTE IMAGING FINDINGS IN THE BRAIN EVIDENCE OF ACUTE STROKE: NO. COMMENT: Quality ID # [id number]: Final reports with documentation of one or more dose reduction techniques (e.g., Automated exposure control, adjustment of the mA and/or kV according to patient size, use of iterative reconstruction technique) TECHNICAL DOCUMENTATION: JOB ID: [id number] [employer]- All Rights Reserved Reading location - IP/workstation name: [email or web address]
[2019-03-13] MEDS ORDERED: CEFTRIAXONE INJ 1000 MG VIAL IV ONE (13:02)
[2019-03-13] MEDS ORDERED: NORMAL SALINE 1000 ML 1,000 ML IV ONE ×2 (13:03→14:00)
[2019-03-13 13:48] LABS: APPEARANCE,URINE SLIGHTLY-CLOUDY; BILIRUBIN,URINE NEGATIVE (NEGATIVE); COLOR,URINE YELLOW; GLUCOSE, URINE NEGATIVE (NEGATIVE); KETONES,URINE TRACE mg/dL (NEGATIVE); LEUKOCYTE ESTERASE,URINE MODERATE (NEGATIVE); NITRITE,URINE POSITIVE (NEGATIVE); PROTEIN,URINE NEGATIVE (NEGATIVE); UROBILINOGEN,URINE NEGATIVE mg/dL (<2.0)
[2019-03-13] MEDS ORDERED: ONDANSETRON HCL INJ/PF 4 MG/2 ML SDV IV PRN (14:02)
[2019-03-13] MEDS ORDERED: ACETAMINOPHEN 325 MG TABLET PO PRN (14:02)
[2019-03-13] MEDS ORDERED: LEVOFLOXACIN 500 MG/D5W RTU 500 MG/100 ML RTUPB IV ONE (18:00)
[2019-03-13] MEDS: NORMAL SALINE 1000 ML 1,000 ML IV PRN (18:19)
[2019-03-13] MEDS: DOCUSATE SODIUM 100 MG CAPSULE PO SCH (18:22)
--- NOTE | 2019-03-13 18:37 | EKG REPORT ---
SEVERITY:- ABNORMAL ECG - SINUS RHYTHM ATRIAL PREMATURE COMPLEX LEFT ANTERIOR FASCICULAR BLOCK ANTERIOR INFARCT, OLD : Confirmed by: Robyn Quinn 13-Mar-2019 18:36:49
[2019-03-13] MEDS: HEPARIN SOD (PORCINE) 5,000 UNIT/ML 1 ML SYRINGE SUBCUT SCH (22:03)
[2019-03-13] MEDS: ZOLPIDEM TARTRATE 5 MG TABLET PO SCH (22:05)
[2019-03-13] MEDS: FAMOTIDINE 20 MG TABLET PO SCH (22:05)
[2019-03-14] MEDS: HEPARIN SOD (PORCINE) 5,000 UNIT/ML 1 ML SYRINGE SUBCUT SCH ×3 (05:00→22:14)
[2019-03-14 05:21] LABS: ANION GAP 6 (5-19); BLOOD UREA NITROGEN 32 mg/dL (7-20); CALCIUM 8.5 mg/dL (8.4-10.2); CARBON DIOXIDE 27 mmol/L (22-30); CHLORIDE 109 mmol/L (98-107); GLUCOSE 84 mg/dL (75-110)
[2019-03-14] MEDS: NORMAL SALINE 1000 ML 1,000 ML IV PRN (05:22)
[2019-03-14 05:24] LABS: ABSOLUTE BASOPHILS # (AUTO) 0.1 10^3/uL (0.0-0.2); ABSOLUTE EOSINOPHILS # (AUTO) 0.1 10^3/uL (0.0-0.6); TOTAL CELLS COUNTED % (AUTO) 100 %
[2019-03-14 05:26] LABS: HEMATOCRIT 36.8 % (36.0-47.0); HEMOGLOBIN 11.7 g/dL (12.0-15.5); RED BLOOD COUNT 3.97 10^6/uL (3.72-5.28); WHITE BLOOD COUNT 10.5 10^3/uL (4.0-10.5)
[2019-03-14 05:27] LABS: MEAN CORPUSCULAR HEMOGLOBIN 29.3 pg (27.0-33.4); MEAN CORPUSCULAR HGB CONC 31.7 g/dL (32.0-36.0); MEAN CORPUSCULAR VOLUME 93 fl (80-97); RED CELL DISTRIBUTION WIDTH 15.6 % (11.5-14.0); SEGMENTED NEUTROPHILS % (AUTO) 67.6 % (42-78)
[2019-03-14 05:28] LABS: ABSOLUTE LYMPHOCYTES (AUTO) 2.6 10^3/uL (0.5-4.7); ABSOLUTE MONOCYTES (AUTO) 0.7 10^3/uL (0.1-1.4); ABSOLUTE NEUT (AUTO) 7.1 10^3/uL (1.7-8.2); BASOPHILS % (AUTO) 0.6 % (0-2); LYMPHOCYTES % (AUTO) 24.5 % (13-45); MONOCYTES % (AUTO) 6.3 % (3-13)
[2019-03-14 05:47] LABS: PLATELET COUNT 60 10^3/uL (150-450)
[2019-03-14] MEDS ORDERED: (PENDING PHARMACY ID) (Atenolol [Tenormin] 12.5 MG) PO SCH (10:00)
[2019-03-14] MEDS ORDERED: (PENDING PHARMACY ID) (Lansoprazole [Prevacid] 30 MG) PO SCH (10:00)
[2019-03-14] MEDS ORDERED: CEFTRIAXONE SODIUM 1,000 MG in DEXTROSE 5%-WATER 50 ML IV SCH (10:00)
[2019-03-14] MEDS ORDERED: LEVOFLOXACIN 500 MG/D5W RTU 500 MG/100 ML RTUPB IV SCH (10:00)
[2019-03-14] MEDS ORDERED: CEFTRIAXONE 1 GM/D5W RTU 1 GM/50 ML RTUPB IV SCH (10:00)
[2019-03-14] MEDS ORDERED: (PENDING PHARMACY ID) (Buspirone Hcl [Buspar 5 Mg Tablet] 5 MG) PO SCH (10:00)
[2019-03-14] MEDS: DOCUSATE SODIUM 100 MG CAPSULE PO SCH ×2 (11:32→17:04)
[2019-03-14] MEDS: FAMOTIDINE 20 MG TABLET PO SCH ×2 (11:32→22:21)
[2019-03-14] MEDS: POLYETHYLENE GLYCOL 3350 POWDER 17 GM/1 PACKET PO SCH (11:32)
[2019-03-14] MEDS: ASPIRIN 81 MG TABLET, CHEWABLE PO SCH (11:32)
[2019-03-14] MEDS: RIVASTIGMINE 4.6 MG/24 HR PATCH.TD24 TD SCH (11:32)
[2019-03-14] MEDS: AMLODIPINE BESYLATE 5 MG TABLET PO SCH (11:33)
[2019-03-14] MEDS: BUSPIRONE HCL 10 MG TABLET PO SCH (11:34)
[2019-03-14] MEDS: PANTOPRAZOLE SODIUM 40 MG TABLET.DR PO SCH (11:34)
[2019-03-14] MEDS ORDERED: LORAZEPAM 0.5 MG TABLET PO PRN (16:22)
--- NOTE | 2019-03-14 19:42 | Progress Note Acknowledgement ---
Progress Note Acknowledgement Progess Note Acknowledgement: I, the undersigned member of the medical staff with appropriate privileges and with supervisory authority over Teodora Holt, a [facility] practice allied health professional, acknowledge that I have reviewed the progress notes entered on this patient, and in my professional judgment believe that the assessment made and/or any care evidenced was appropriate
--- NOTE | 2019-03-14 21:01 | PDOC PROGRESS REPORT ---
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 Patient was seen on afternoon rounds. She was found resting in bed comfortably on room air. She was sleeping soundly; woke slightly with gentle shake, but fell back to sleep. Per nursing was awake, ate breakfast, socially appropriate, but speaking word salad this morning. Per her hospice nurse, this is her baseline. ROS limited secondary to mental status; appears comfortable and not in any acute distress. No concerns per nursing. Reason For Visit: ALTERED MENTAL STATUS,COMPLICATED UTI Physical Exam Vital Signs: Temp Pulse Resp BP Pulse Ox 98.8 F 64 24 H 168/62 H 100 03/14/19 12:11 03/14/19 12:11 03/14/19 12:11 03/14/19 12:11 03/14/19 12:11 Intake & Output 03/13/19 03/14/19 03/15/19 06:59 06:59 06:59 Intake Total 2200 200 Balance 2200 200 Weight 119.5 kg General appearance: PRESENT: no acute distress, well-developed, well-nourished Head exam: PRESENT: atraumatic, normocephalic Eye exam: PRESENT: conjunctiva pink, EOMI, PERRLA. ABSENT: scleral icterus Ear exam: PRESENT: normal external ear exam Mouth exam: PRESENT: moist, tongue midline Neck exam: ABSENT: carotid bruit, JVD, lymphadenopathy, thyromegaly Respiratory exam: PRESENT: clear to auscultation slade, symmetrical, unlabored. ABSENT: rales, rhonchi, wheezes Cardiovascular exam: PRESENT: RRR. ABSENT: diastolic murmur, rubs, systolic murmur Pulses: PRESENT: normal dorsalis pedis pul Vascular exam: PRESENT: normal capillary refill GI/Abdominal exam: PRESENT: normal bowel sounds, soft. ABSENT: distended, guarding, mass, organolmegaly, rebound, tenderness Rectal exam: PRESENT: deferred Extremities exam: PRESENT: full ROM. ABSENT: calf tenderness, clubbing, pedal edema Neurological exam: PRESENT: other - Sleeping soundly; not orientated at baseline. ABSENT: motor sensory deficit Psychiatric exam: PRESENT: appropriate affect, normal mood. ABSENT: homicidal ideation, suicidal ideation Skin exam: PRESENT: dry, intact, warm. ABSENT: cyanosis, rash Results Laboratory Results: 03/14/19 04:29 03/14/19 04:29 03/14/19 03/14/19 03/14/19 04:29 04:29 04:29 WBC 10.5 RBC 3.97 Hgb 11.7 L Hct 36.8 MCV 93 MCH 29.3 MCHC 31.7 L RDW 15.6 H Plt Count 60 L Seg Neutrophils % 67.6 Lymphocytes % 24.5 Monocytes % 6.3 Eosinophils % 1.0 Basophils % 0.6 Absolute Neutrophils 7.1 Absolute Lymphocytes 2.6 Absolute Monocytes 0.7 Absolute Eosinophils 0.1 Absolute Basophils 0.1 Sodium 142.0 Potassium 4.0 Chloride 109 H Carbon Dioxide 27 Anion Gap 6 BUN 32 H Creatinine 1.00 Est GFR ( Amer) > 60 Est GFR (Non-Af Amer) 52 L Glucose 84 Calcium 8.5 TSH 2.29 03/13/19 11:50 Troponin I < 0.012 Impressions: Chest X-Ray 03/13/19 11:58 IMPRESSION: Cardiomegaly without pulmonary edema. Head CT 03/13/19 11:58 IMPRESSION: MICROVASCULAR ISCHEMIA AND GENERALIZED ATROPHY. NO ACUTE IMAGING FINDINGS IN THE BRAIN EVIDENCE OF ACUTE STROKE: NO. Assessment and Plan - Diagnosis (1) Acute UTI Is this a current diagnosis for this admission?: Yes Plan: Blood cultures are negative at 24 Urine culture shows Gm Neg Rods Continue IV Rocephin; will adjust as cultures result. (2) Altered mental status Qualifiers: Altered mental status type: somnolence Qualified Code(s): R40.0 - Somnolence Is this a current diagnosis for this admission?: Yes Plan: Secondary to UTI and advanced Dementia. Patient is disorientated x4 w/ word salad at baseline. Supportive care. Treatment of UTI as above. (3) Leukocytosis Qualifiers: Leukocytosis type: bandemia Qualified Code(s): D72.825 - Bandemia Is this a current diagnosis for this admission?: Yes Plan: Resolved. Secondary to #1 Cultures and antibiotics as above. (4) Dementia Qualifiers: Dementia type: unspecified type Dementia behavioral disturbance: without behavioral disturbance Qualified Code(s): F03.90 - Unspecified dementia without behavioral disturbance Is this a current diagnosis for this admission?: Yes Plan: Supportive care. Fall and aspiration precautions. Continue home dose Exelon, BuSpar and Depakote. - Time Time Spent with patient: 15-24 minutes Medications reviewed and adjusted accordingly: Yes Anticipated discharge: SNF Within: within 24 hours
[2019-03-14] MEDS ORDERED: (PENDING PHARMACY ID) (Divalproex Sodium [Depakote] 125 MG) PO SCH (22:00)
[2019-03-14] MEDS ORDERED: ATORVASTATIN CALCIUM 10 MG TABLET PO SCH (22:00)
[2019-03-14] MEDS ORDERED: DIVALPROEX SODIUM 125 MG CAP.SPRINK PO SCH (22:00)
[2019-03-14] MEDS: ZOLPIDEM TARTRATE 5 MG TABLET PO SCH (22:21)
[2019-03-15 04:42] LABS: ABSOLUTE EOSINOPHILS # (AUTO) 0.1 10^3/uL (0.0-0.6); ABSOLUTE LYMPHOCYTES (AUTO) 1.6 10^3/uL (0.5-4.7); ABSOLUTE MONOCYTES (AUTO) 0.5 10^3/uL (0.1-1.4); ABSOLUTE NEUT (AUTO) 4.6 10^3/uL (1.7-8.2); BASOPHILS % (AUTO) 0.2 % (0-2); HEMATOCRIT 30.1 % (36.0-47.0); HEMOGLOBIN 9.8 g/dL (12.0-15.5); LYMPHOCYTES % (AUTO) 23.6 % (13-45); MEAN CORPUSCULAR HEMOGLOBIN 29.8 pg (27.0-33.4); MEAN CORPUSCULAR HGB CONC 32.5 g/dL (32.0-36.0); MEAN CORPUSCULAR VOLUME 92 fl (80-97); MONOCYTES % (AUTO) 7.5 % (3-13); RED BLOOD COUNT 3.29 10^6/uL (3.72-5.28); SEGMENTED NEUTROPHILS % (AUTO) 66.7 % (42-78); TOTAL CELLS COUNTED % (AUTO) 100 %
[2019-03-15 05:11] LABS: PLATELET COUNT 70 10^3/uL (150-450)
[2019-03-15] MEDS: HEPARIN SOD (PORCINE) 5,000 UNIT/ML 1 ML SYRINGE SUBCUT SCH (05:12)
[2019-03-15] MEDS: AMLODIPINE BESYLATE 5 MG TABLET PO SCH (09:25)
[2019-03-15] MEDS: FAMOTIDINE 20 MG TABLET PO SCH (09:25)
[2019-03-15] MEDS: BUSPIRONE HCL 10 MG TABLET PO SCH (09:27)
[2019-03-15] MEDS: DOCUSATE SODIUM 100 MG CAPSULE PO SCH (09:27)
[2019-03-15] MEDS: PANTOPRAZOLE SODIUM 40 MG TABLET.DR PO SCH (09:28)
[2019-03-15] MEDS: ASPIRIN 81 MG TABLET, CHEWABLE PO SCH (09:28)
[2019-03-15] MEDS: POLYETHYLENE GLYCOL 3350 POWDER 17 GM/1 PACKET PO SCH (09:29)
[2019-03-15] MEDS: RIVASTIGMINE 4.6 MG/24 HR PATCH.TD24 TD SCH (09:31)
[2019-03-15] MEDS ORDERED: ATENOLOL 50 MG TABLET PO SCH (10:00)
--- NOTE | 2019-03-15 10:34 | PDOC TRANSFER SUMMARY ---
General - Admit/Disc Date/PCP Admission Date/Primary Care Provider: 03/13/19 13:46 PEPITO LYMAN Discharge Date: 03/15/19 - Discharge Diagnosis (1) Acute UTI Is this a current diagnosis for this admission?: Yes Summary: Blood cultures are negative at 24 Urine culture shows E. Coli. Patient was admitted to the medical floor and provided gentle IVF. She was empirically placed on IV Rocephin; have transitioned to p.o. Ceftin for completion of course of therapy. (2) Altered mental status Is this a current diagnosis for this admission?: Yes Summary: Stable. Secondary to UTI and advanced Dementia. CT Head showed chronic microvascular ischemic changes and generalized atrophy. No acute findings. Patient is disorientated x4 w/ word salad at baseline. Spoke with patient's Hospice nurse who confirms that patient is at her nml mentation. Supportive care. Treatment of UTI as above. (3) Leukocytosis Is this a current diagnosis for this admission?: Yes Summary: Resolved. Secondary to #1 Cultures and antibiotics as above. (4) Dementia Is this a current diagnosis for this admission?: Yes Summary: Supportive care. Fall and aspiration precautions. Continue home medication regiment. - Additional Information Resuscitation Status: Do Not Resuscitate Discharge Diet: As Tolerated, Regular Discharge Activity: Activity As Tolerated, Balance Activity w/Rest Prescriptions: Cefuroxime Axetil [Ceftin 250 mg Tablet] 1 tab PO BID #10 tablet Home Medications: Amlodipine Besylate [Norvasc 5 mg Tablet] 5 mg PO DAILY 03/13/19 Aspirin [Aspirin 81 mg Chewable Tablet] 81 mg PO DAILY 03/13/19 Atenolol [Tenormin] 12.5 mg PO DAILY 03/13/19 Atorvastatin Calcium [Lipitor 10 mg Tablet] 10 mg PO QHS 03/13/19 Buspirone HCl [Buspar 5 mg Tablet] 5 mg PO DAILY 03/13/19 Divalproex Sodium [Depakote] 125 mg PO QHS 03/13/19 Docusate Sodium [Colace 100 mg Capsule] 100 mg PO BID 03/13/19 Furosemide [Lasix 20 mg Tablet] 20 mg PO DAILY 03/13/19 Lansoprazole [Prevacid] 30 mg PO DAILY 03/13/19 Lorazepam [Ativan 0.5 mg Tablet] 0.5 mg PO Q8HP PRN 03/13/19 Lorazepam [Ativan 0.5 mg Tablet] 0.5 mg PO QHS 03/13/19 Polyethylene Glycol 3350 [Miralax Powder 17 gm/Packet] 1 packet PO DAILY 03/13/19 Promethazine HCl [Phenergan 25 mg Tablet] 25 mg PO Q4HP PRN 03/13/19 Rivastigmine [Exelon 4.6 mg/24 Hr Transdermal Patch] 1 each TD DAILY 03/13/19 Zolpidem Tartrate [Ambien 5 mg Tablet] 5 mg PO DAILYP PRN 03/13/19 Acetaminophen [Tylenol 325 mg Tablet] 650 mg PO Q4HP PRN tablet 03/15/19 Cefuroxime Axetil [Ceftin 250 mg Tablet] 1 tab PO BID #10 tablet 03/15/19 Docusate Sodium [Colace 100 mg Capsule] 100 mg PO BID capsule 03/15/19 History of Present Illness Admission Date/PCP: 03/13/19 13:46 PEPITO LYMAN History of Present Illness: HORTENCIA PEDRAZA is a 88 year old female who presented to the emergency department from [facility] where she is a senior living resident with complaint of increased lethargy and confusion from her baseline. Evaluation in the Emergency Department revealed leukocytosis (WBC 17), unremarkable chemistry, and a UTI. Head CT showed chronic microvascular ischemic changes and generalized atrophy; no acute findings. EKG and CXR were benign. She was admitted to the hospitalist service for treatment of UTI. Physical Exam Vital Signs: Temp Pulse Resp BP Pulse Ox 98.3 F 59 L 14 148/70 H 98 03/15/19 07:20 03/15/19 07:20 03/15/19 07:20 03/15/19 07:20 03/15/19 07:20 Intake & Output 03/14/19 03/15/19 03/16/19 06:59 06:59 06:59 Intake Total 2200 250 Balance 2200 250 Weight 119.5 kg 119.5 kg General appearance: PRESENT: no acute distress, well-developed, well-nourished Head exam: PRESENT: atraumatic, normocephalic Eye exam: PRESENT: conjunctiva pink, EOMI, PERRLA. ABSENT: scleral icterus Ear exam: PRESENT: normal external ear exam Mouth exam: PRESENT: moist, tongue midline Neck exam: ABSENT: carotid bruit, JVD, lymphadenopathy, thyromegaly Respiratory exam: PRESENT: clear to auscultation slade. ABSENT: rales, rhonchi, wheezes Cardiovascular exam: PRESENT: RRR. ABSENT: diastolic murmur, rubs, systolic murmur Pulses: PRESENT: normal dorsalis pedis pul Vascular exam: PRESENT: normal capillary refill GI/Abdominal exam: PRESENT: normal bowel sounds, soft. ABSENT: distended, guarding, mass, organolmegaly, rebound, tenderness Rectal exam: PRESENT: deferred Extremities exam: PRESENT: full ROM. ABSENT: calf tenderness, clubbing, pedal edema Neurological exam: PRESENT: CN II-XII grossly intact, other - Fatigued; wakes easily. Makes eye contact, is socially approrpiate, speaks in word salad. At baseline per Hospice nurse who visited yesterday.. ABSENT: motor sensory deficit Psychiatric exam: PRESENT: appropriate affect, normal mood. ABSENT: homicidal ideation, suicidal ideation Skin exam: PRESENT: dry, intact, warm. ABSENT: cyanosis, rash Results Laboratory Results: 03/15/19 03:52 03/14/19 04:29 03/15/19 03:52 WBC 7.0 RBC 3.29 L Hgb 9.8 L Hct 30.1 L MCV 92 MCH 29.8 MCHC 32.5 RDW 16.0 H Plt Count 70 L Seg Neutrophils % 66.7 Lymphocytes % 23.6 Monocytes % 7.5 Eosinophils % 2.0 Basophils % 0.2 Absolute Neutrophils 4.6 Absolute Lymphocytes 1.6 Absolute Monocytes 0.5 Absolute Eosinophils 0.1 Absolute Basophils 0.0 03/13/19 13:20 Catheterized Urine Urine Culture - Final Escherichia Coli 03/13/19 11:50 Troponin I < 0.012 Impressions: Chest X-Ray 03/13/19 11:58 IMPRESSION: Cardiomegaly without pulmonary edema. Head CT 03/13/19 11:58 IMPRESSION: MICROVASCULAR ISCHEMIA AND GENERALIZED ATROPHY. NO ACUTE IMAGING FINDINGS IN THE BRAIN EVIDENCE OF ACUTE STROKE: NO. Transfer Plan - Disposition Transfer Plan: Discharge to [facility] where patient is an established resident. - Time Spent with Patient Time spent with patient: Less than 30 Minutes Qualifiers - * PATIENT BEING DISCHARGED WITH ANY OF THE FOLLOWING DIAGNOSIS: No Acute Heart Failure - Is this a Heart Failure Patient?: No Plan Discharge Plan: Discharge to [facility] where patient is an established resident. Resume Hospice services. Complete course of Ceftin for treatment of UTI. Follow up with PCP within 1 week. Time Spent: Greater than 30 Minutes
[2019-03-15 14:26] VITALS: BP 149/70
--- NOTE | 2019-03-18 18:17 | PDOC H&P ---
History of Present Illness Admission Date/PCP: 03/13/19 13:46 PEPITO LYMAN History of Present Illness: HORTENCIA PEDRAZA is a 88 year old black female patient with past medical history of hypertension, hyperlipidemia, recurrent left hip dislocation, recurrent UTI, history of hemorrhagic stroke, and anxiety depression and Alzheimer dementia brought with chief complaint of altered mental status. Since patient has cognitive impairment and no family members during my encounter brief history is obtained from the ER attending note. Per ER attending note, patient lives at [facility] facility. She reportedly has Alzheimer's dementia. Patient was sitting at the breakfast table this morning around 8 AM per her son when she had an episode of unresponsiveness. The son states that she seemed to slump over her breakfast and had slurred speech patient reportedly has history of TIAs in the past. [facility] states initially she was noted speaking and AMS state that she has had improving mentation since they arrived on the scene. Her blood work is remarkable for leukocytosis of 17,000. Her CT scan of the head reported as no acute intracranial process. Further detailed history and review of systems unobtainable. Past Medical History Cardiac Medical History: Reports: Hyperlipidema, Hypertension Pulmonary Medical History: Neurological Medical History: Endocrine Medical History: Renal/ Medical History: Malignancy Medical History: Reports: Breast Cancer GI Medical History: Musculoskeltal Medical History: Psychiatric Medical History: Reports: Dementia, Depression Hematology: Denies: Anemia, Hemophilia, Sickle Cell Disease Infectious Medical History: Past Surgical History Past Surgical History: Reports: Appendectomy, Hysterectomy, Mastectomy - R breast, Orthopedic Surgery - Right hip prosthesis with revision on 12/14/2015, Tonsillectomy Denies: Amputation Social History Smoking Status: Never Smoker Frequency of Alcohol Use: None Hx Recreational Drug Use: No Drugs: None Hx Prescription Drug Abuse: No - Advance Directive Resuscitation Status: Full Code Family History Family History: Reviewed & Not Pertinent Parental Family History Reviewed: Yes Children Family History Reviewed: Yes Sibling(s) Family History Reviewed.: Yes Medication/Allergy Home Medications: Amlodipine Besylate [Norvasc 5 mg Tablet] 5 mg PO DAILY 03/13/19 Aspirin [Aspirin 81 mg Chewable Tablet] 81 mg PO DAILY 03/13/19 Atenolol [Tenormin] 12.5 mg PO DAILY 03/13/19 Atorvastatin Calcium [Lipitor 10 mg Tablet] 10 mg PO QHS 03/13/19 Buspirone HCl [Buspar 5 mg Tablet] 5 mg PO DAILY 03/13/19 Divalproex Sodium [Depakote] 125 mg PO QHS 03/13/19 Docusate Sodium [Colace 100 mg Capsule] 100 mg PO BID 03/13/19 Furosemide [Lasix 20 mg Tablet] 20 mg PO DAILY 03/13/19 Lansoprazole [Prevacid] 30 mg PO DAILY 03/13/19 Lorazepam [Ativan 0.5 mg Tablet] 0.5 mg PO Q8HP PRN 03/13/19 Lorazepam [Ativan 0.5 mg Tablet] 0.5 mg PO QHS 03/13/19 Polyethylene Glycol 3350 [Miralax Powder 17 gm/Packet] 1 packet PO DAILY 03/13/19 Promethazine HCl [Phenergan 25 mg Tablet] 25 mg PO Q4HP PRN 03/13/19 Rivastigmine [Exelon 4.6 mg/24 Hr Transdermal Patch] 1 each TD DAILY 03/13/19 Zolpidem Tartrate [Ambien 5 mg Tablet] 5 mg PO DAILYP PRN 03/13/19 Acetaminophen [Tylenol 325 mg Tablet] 650 mg PO Q4HP PRN tablet 03/15/19 Cefuroxime Axetil [Ceftin 250 mg Tablet] 1 tab PO BID #10 tablet 03/15/19 Docusate Sodium [Colace 100 mg Capsule] 100 mg PO BID capsule 03/15/19 Allergies/Adverse Reactions: codeine [Codeine] Allergy (Verified 06/30/17 08:57) Penicillins Allergy (Verified 06/30/17 08:57) Review of Systems ROS unobtainable: Due to mental status Physical Exam Vital Signs: Temp Pulse Resp BP Pulse Ox 101/66 95 03/13/19 14:01 03/13/19 13:41 Head exam: PRESENT: atraumatic Eye exam: PRESENT: conjunctiva pink Mouth exam: PRESENT: dry mucosa Neck exam: ABSENT: carotid bruit, JVD, lymphadenopathy, thyromegaly Respiratory exam: PRESENT: clear to auscultation slade. ABSENT: rales, rhonchi, wheezes Cardiovascular exam: PRESENT: RRR. ABSENT: diastolic murmur, rubs, systolic murmur Results Laboratory Results: 03/13/19 11:50 03/13/19 11:50 03/13/19 03/13/19 03/13/19 11:50 11:50 11:50 WBC 17.3 H RBC 4.25 Hgb 12.4 Hct 38.9 MCV 92 MCH 29.2 MCHC 31.8 L RDW 15.7 H Plt Count 104 L Seg Neutrophils % Not Reportable Lymphocytes % Not Reportable Monocytes % Not Reportable Eosinophils % Not Reportable Basophils % Not Reportable Absolute Neutrophils Not Reportable Absolute Lymphocytes Not Reportable Absolute Monocytes Not Reportable Absolute Eosinophils Not Reportable Absolute Basophils Not Reportable VBG pH VBG pCO2 VBG HCO3 VBG Base Excess Sodium 141.6 Potassium 4.2 Chloride 105 Carbon Dioxide 26 Anion Gap 11 BUN 33 H Creatinine 1.02 Est GFR ( Amer) > 60 Est GFR (Non-Af Amer) 51 L Glucose 122 H Lactic Acid 1.7 Calcium 9.4 Total Bilirubin 0.9 AST 20 ALT 9 Alkaline Phosphatase 105 Total Protein 7.5 Albumin 4.3 Urine Color Urine Appearance Urine pH Ur Specific Hazel Urine Protein Urine Glucose (UA) Urine Ketones Urine Blood Urine Nitrite Ur Leukocyte Esterase Urine WBC (Auto) Urine RBC (Auto) 03/13/19 03/13/19 12:08 13:20 WBC RBC Hgb Hct MCV MCH MCHC RDW Plt Count Seg Neutrophils % Lymphocytes % Monocytes % Eosinophils % Basophils % Absolute Neutrophils Absolute Lymphocytes Absolute Monocytes Absolute Eosinophils Absolute Basophils VBG pH 7.42 VBG pCO2 39.4 VBG HCO3 24.7 VBG Base Excess 0.2 Sodium Potassium Chloride Carbon Dioxide Anion Gap BUN Creatinine Est GFR ( Amer) Est GFR (Non-Af Amer) Glucose Lactic Acid Calcium Total Bilirubin AST ALT Alkaline Phosphatase Total Protein Albumin Urine Color YELLOW Urine Appearance SLIGHTLY-CLOUDY Urine pH 5.0 Ur Specific Hazel 1.020 Urine Protein NEGATIVE Urine Glucose (UA) NEGATIVE Urine Ketones TRACE H Urine Blood NEGATIVE Urine Nitrite POSITIVE H Ur Leukocyte Esterase MODERATE H Urine WBC (Auto) 56 Urine RBC (Auto) 0 03/13/19 11:50 Troponin I < 0.012 Impressions: Chest X-Ray 03/13/19 11:58 IMPRESSION: Cardiomegaly without pulmonary edema. Head CT 03/13/19 11:58 IMPRESSION: MICROVASCULAR ISCHEMIA AND GENERALIZED ATROPHY. NO ACUTE IMAGING FINDINGS IN THE BRAIN EVIDENCE OF ACUTE STROKE: NO. Assessment and Plan - Diagnosis (1) Acute metabolic encephalopathy Is this a current diagnosis for this admission?: Yes Plan: compounded by uti. treat underlying condition (2) UTI (urinary tract infection) Is this a current diagnosis for this admission?: Yes Plan: continue abx
== END 2019-03-15 12:10 | DRG 690 ==
LOC: ER 11:36 → EH 13:46 → 4N 16:41
PROVIDERS: ADMIT Internal Medicine; ATTEND Internal Medicine
DX: N39.0 Urinary tract infection, site not specified (principal); B96.20 Unspecified Escherichia coli [E. coli] as the cause of diseases classified elsewhere; D72.829 Elevated white blood cell count, unspecified; I10 Essential (primary) hypertension; K21.9 Gastro-esophageal reflux disease without esophagitis; G30.9 Alzheimer's disease, unspecified; F02.80 Dementia in other diseases classified elsewhere, unspecified severity, without behavioral disturbance, psychotic disturbance, mood disturbance, and anxiety; Z66 Do not resuscitate; E78.00 Pure hypercholesterolemia, unspecified; Z79.82 Long term (current) use of aspirin; Z79.899 Other long term (current) drug therapy; Z86.73 Personal history of transient ischemic attack (TIA), and cerebral infarction without residual deficits; Z85.3 Personal history of malignant neoplasm of breast; Z90.11 Acquired absence of right breast and nipple
CPT/HCPCS: 36415; 70450; 71045; 80048; 80053; 81001; 82803; 83605; 84443; 84484; 85025; 85610; 87040; 87086; 87088; 87186; 93005; 93010; 96360; 99285; J0696; J1956; J3490; J7030; J7060

== ENCOUNTER 2020-07-24 12:38 | Emergency (ER) | payer MEDICARE, OTHER ==
--- NOTE | 2020-07-24 13:12 | ER Document Report ---
ED General - General Chief Complaint: Fall Stated Complaint: FALL Time Seen by Provider: 07/24/20 13:11 Primary Care Provider: PEPITO LYMAN MD [Primary Care Provider] - Follow up as needed TRAVEL OUTSIDE OF THE [place] IN LAST 30 DAYS: No - HPI Notes: 89-year-old female with a history of Alzheimer's and dementia who is a resident at [facility] presents to the ED via EMS for a evaluation after she was seen seated in her wheelchair and had an unwitnessed fall to the floor, only witnessed by other residents, not by staff within the last couple of hours. She is a poor historian. Denies any chest pain shortness of breath, headache, blurred vision double vision or loss of vision. No open wounds or bleeding. - Related Data Allergies/Adverse Reactions: codeine [Codeine] Allergy (Verified 07/24/20 13:06) Penicillins Allergy (Verified 07/24/20 13:06) Past Medical History - General Information source: Patient - Social History Smoking Status: Unknown if Ever Smoked Family History: Reviewed & Not Pertinent - Past Medical History Cardiac Medical History: Reports: Hx Hypercholesterolemia, Hx Hypertension Pulmonary Medical History: Neurological Medical History: Reports: Hx Cerebrovascular Accident - 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,. Denies: Hx Parkinson's Disease Endocrine Medical History: Renal/ Medical History: Malignancy Medical History: Reports: Hx Breast Cancer GI Medical History: Denies: Hx Pancreatitis Musculoskeletal Medical History: Denies Hx Systemic Lupus Erythematosus Psychiatric Medical History: Reports: Hx Dementia, Hx Depression Traumatic Medical History: Infectious Medical History: Past Surgical History: Reports: Hx Appendectomy, Hx Breast Surgery - right, Hx Hysterectomy, Hx Mastectomy - R breast, Hx Orthopedic Surgery - Right hip prosthesis with revision on 12/14/2015, Hx Tonsillectomy - Immunizations Hx Diphtheria, Pertussis, Tetanus Vaccination: No Hx Pneumococcal Vaccination: 07/30/12 Review of Systems - Review of Systems Constitutional: No symptoms reported EENT: No symptoms reported Cardiovascular: No symptoms reported Respiratory: No symptoms reported Gastrointestinal: No symptoms reported Genitourinary: No symptoms reported Female Genitourinary: No symptoms reported Musculoskeletal: No symptoms reported Skin: No symptoms reported Hematologic/Lymphatic: No symptoms reported Neurological/Psychological: See HPI Physical Exam - Vital signs Vitals: Temp Pulse Resp BP Pulse Ox 97.5 F 97 14 104/49 L 77 L 07/24/20 12:47 07/24/20 12:47 07/24/20 12:47 07/24/20 12:47 07/24/20 12:47 - Notes Notes: MEDICATIONS: I agree with the patient medications as charted by the RN. ALLERGIES: I agree with the allergies as charted by the RN. PAST MEDICAL HISTORY/PAST SURGICAL HISTORY: Reviewed and agree as charted by RN. SOCIAL HISTORY: Reviewed and agree as charted by RN. FAMILY HISTORY: No significant familial comorbid conditions directly related to patient complaint EXAM: Reviewed vital signs as charted by RN. PHYSICAL EXAMINATION: reviewed vital signs by RN GENERAL: Well-appearing, well-nourished and in no acute distress. HEAD: Atraumatic, normocephalic. EYES: Pupils equal round and reactive to light, extraocular movements intact, conjunctiva are normal. ENT: Nares patent, oropharynx clear without exudates. Moist mucous membranes. NECK: Normal range of motion, supple without lymphadenopathy LUNGS: Breath sounds clear to auscultation bilaterally and equal. No wheezes rales or rhonchi. HEART: Regular rate and rhythm without murmurs ABDOMEN: Soft, nontender, nondistended abdomen. No guarding, no rebound. No masses appreciated. Female : deferred Musculoskeletal: Normal range of motion, no pitting or edema. No cyanosis. NEUROLOGICAL: Cranial nerves grossly intact. Normal speech, normal gait. Normal sensory, motor exams. PERRLA, EOMI. Full motor and sensory function throughout. 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 Tongue midline. No pronator drift. No ataxia. Neck with APROM. Raises eyebrows. Strength is 4 out of 4, which her daughter said was her baseline. PSYCH: Normal mood, normal affect. SKIN: Warm, Dry, normal turgor, no rashes or lesions noted. Course - Re-evaluation Re-evalutation: 07/24/20 16:23 Afebrile vital stable no distress. Nurses notes reviewed. CT of head and cervical spine negative for any acute findings, does show age-related changes. Chest x-ray negative for any acute pneumonia, rib fractures, pneumothorax or acute findings. Discussed these findings with patient as well as her daughter. Advised to follow-up with primary care provider as needed. After performing a Medical Screening Examination, I estimate there is LOW risk for ACUTE GLAUCOMA, TEMPORAL ARTERITIS, MENINGITIS, INCRANIAL HEMORRHAGE, or ISCHEMIC STROKE thus I consider the discharge disposition reasonable. I have reevaluated this patient multiple times and no significant life threatening changes are noted. The patient and I have discussed the diagnosis and risks, and we agree with discharging home with close follow-up with the understanding that symptoms and presentations can change. We also discussed returning to the Emergency Department immediately if new or worsening symptoms occur. We have discussed the symptoms which are most concerning (e.g., changing or worsening symptoms, new numbness or weakness, vomiting, fever) that necessitate immediate return. 07/24/20 16:24 - Vital Signs Vital signs: Temp Pulse Resp BP Pulse Ox 97.5 F 97 14 104/49 L 77 L 07/24/20 12:47 07/24/20 12:47 07/24/20 12:47 07/24/20 12:47 07/24/20 12:47 Discharge - Discharge Clinical Impression: Closed head injury Condition: Stable Disposition: HOME, SELF-CARE Additional Instructions: CTs of your head, neck and x-rays did not show any new findings. Please follow- up with your primary care provider as needed. Return immediately for any new or worsening symptoms. Follow up with primary care provider, call tomorrow to make followup appointment. Referrals: PEPITO LYMAN MD [Primary Care Provider] - Follow up as needed
--- NOTE | 2020-07-24 15:32 | RADIOLOGY REPORT (SQ) ---
EXAM DESCRIPTION: CHEST 2 VIEWS IMAGES COMPLETED DATE/TIME: 07/24/2020 2:09 pm REASON FOR STUDY: unwitnessed fall COMPARISON: 03/13/2019 EXAM PARAMETERS: NUMBER OF VIEWS: two views TECHNIQUE: Digital Frontal and Lateral radiographic views of the chest acquired. RADIATION DOSE: NA LIMITATIONS: none FINDINGS: LUNGS AND PLEURA: Elevation of the right hemidiaphragm is stable. No focal consolidation or pleural effusion. No pneumothorax. Pleural and parenchymal scarring at the right lung apex is st able. MEDIASTINUM AND HILAR STRUCTURES: No masses or contour abnormalities. HEART AND VASCULAR STRUCTURES: Heart normal size. No evidence for failure. BONES: No acute findings. HARDWARE: Surgical clips in the right axilla. OTHER: No other significant finding. IMPRESSION: No significant interval change. No acute cardiopulmonary disease. TECHNICAL DOCUMENTATION: JOB ID: [id number] 2010 [employer]- All Rights Reserved Reading location - IP/workstation name: [email or web address]
--- NOTE | 2020-07-24 15:34 | RADIOLOGY REPORT (SQ) ---
EXAM DESCRIPTION: CT HEAD WITHOUT IMAGES COMPLETED DATE/TIME: 07/24/2020 2:24 pm REASON FOR STUDY: unwitnessed fall from wheelchair to ground COMPARISON: 03/13/2019 TECHNIQUE: Axial images acquired through the brain without intravenous contrast. Images reviewed wi th bone, brain and subdural windows. Additional sagittal and coronal reconstructions were generated. Images stored on PACS. All CT scanners at this facility use dose modulation, iterative reconstruction, and/or weight based d osing when appropriate to reduce radiation dose to as low as reasonably achievable (ALARA). [facility]: Dose Right [facility]: CareDose [facility]: Dose Right [facility]: Teradose 4D [facility]: [employer] RADIATION DOSE: CT Rad equipment meets quality standard of care and radiation dose reduction techniq ues were employed. CTDIvol: 53.2 mGy. DLP: 937 mGy-cm. mGy. LIMITATIONS: None. FINDINGS: VENTRICLES: Normal size and contour. CEREBRUM: No masses. No hemorrhage. No midline shift. No evidence for acute infarction. Normal gra y-white matter differentiation. Moderate diffuse periventricular and deep white matter hypodense att enuation consistent with moderate chronic small vessel ischemic change, stable. CEREBELLUM: No masses. No hemorrhage. No alteration of density. No evidence for acute infarction. EXTRAAXIAL SPACES: No fluid collections. No masses. ORBITS AND GLOBE: No intra- or extraconal masses. Normal contour of globe without masses. CALVARIUM: No fracture. PARANASAL SINUSES: No fluid or mucosal thickening. SOFT TISSUES: No mass or hematoma. OTHER: No other significant finding. IMPRESSION: No acute intracranial hemorrhage, mass, or evidence of acute territorial infarct. Moder ate chronic small vessel ischemic changes stable. EVIDENCE OF ACUTE STROKE: NO. COMMENT: Quality ID # [id number]: Final reports with documentation of one or more dose reduction techniques (e.g., Automated exposure control, adjustment of the mA and/or kV according to patient size, use of iterative reconstruction technique) TECHNICAL DOCUMENTATION: JOB ID: [id number]- All Rights Reserved Reading location - IP/workstation name: [email or web address]
--- NOTE | 2020-07-24 15:44 | RADIOLOGY REPORT (SQ) ---
EXAM DESCRIPTION: CT CERVICAL SPINE WITHOUT IMAGES COMPLETED DATE/TIME: 07/24/2020 2:24 pm REASON FOR STUDY: unwitnessed fall from wheelchair to ground COMPARISON: Chest radiograph same date. TECHNIQUE: Axial images acquired through the cervical spine without intravenous contrast. Images re viewed with lung, soft tissue and bone windows. Reconstructed coronal and sagittal MPR images review ed. Images stored on PACS. All CT scanners at this facility use dose modulation, iterative reconstruction, and/or weight based d osing when appropriate to reduce radiation dose to as low as reasonably achievable (ALARA). [facility]: Dose Right [facility]: CareDose [facility]: Dose Right [facility]: Teradose 4D [facility]: Smart [employer] RADIATION DOSE: CT Rad equipment meets quality standard of care and radiation dose reduction techniq ues were employed. CTDIvol: 22.7 mGy. DLP: 367 mGy-cm. mGy. LIMITATIONS: None. FINDINGS: ALIGNMENT: There is reversal of the normal cervical lordosis likely on the basis of chroni c degenerative change. MINERALIZATION: Normal. VERTEBRAL BODIES: No acute fracture or cortical disruption. Spondylosis with small marginal osteophy kristen at the endplates. Endplate sclerosis and cystic change inferior endplate C5 and superior endplat e C6. DISCS: Multilevel degenerative disc disease with loss of intervertebral disc heights at multiple leve ls. FACETS, LATERAL MASSES, POSTERIOR ELEMENTS: Multilevel facet arthropathy and uncovertebral spurring. HARDWARE: None in the spine. VISUALIZED RIBS: No fractures. LUNG APICES AND SOFT TISSUES: Asymmetric right apical pleural scarring. OTHER: No other significant finding. IMPRESSION: 1. No acute fracture or dislocation of the cervical spine. 2. Degenerative disc disease, spondylosis, and facet arthropathy. 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 3. Asymmetric right apical pleural thickening, probably post radiation change. TECHNICAL DOCUMENTATION: JOB ID: [id number] Quality ID # [id number]: Final reports with documentation of one or more dose reduction techniques (e.g., Au tomated exposure control, adjustment of the mA and/or kV according to patient size, use of iterative reconstruction technique) 2010 [employer]- All Rights Reserved Reading location - IP/workstation name: [email or web address]
[2020-07-24 16:05] VITALS: BP 127/62
== END 2020-07-24 16:45 | disposition home or self-care (01) ==
LOC: ER 12:38
DX: S09.90XA Unspecified injury of head, initial encounter (principal); W05.0XXA Fall from non-moving wheelchair, initial encounter; Y92.129 Unspecified place in nursing home as the place of occurrence of the external cause; M50.30 Other cervical disc degeneration, unspecified cervical region; M47.812 Spondylosis without myelopathy or radiculopathy, cervical region; G30.9 Alzheimer's disease, unspecified; F02.80 Dementia in other diseases classified elsewhere, unspecified severity, without behavioral disturbance, psychotic disturbance, mood disturbance, and anxiety; I10 Essential (primary) hypertension; Z85.3 Personal history of malignant neoplasm of breast; Z88.6 Allergy status to analgesic agent; Z88.5 Allergy status to narcotic agent
CPT/HCPCS: 70450; 71046; 72125; 99284